=== PATIENT | male | born 1960 | race Caucasian/White ===

== ENCOUNTER 2018-04-16 10:19 | Emergency (ER) | payer OTHER ==
[2018-04-16] MEDS ORDERED: TETRACAINE HCL 0.5% 2ML OPTH ONE (11:02)
[2018-04-16] MEDS ORDERED: FLUORESCEIN SODIUM 0.6 MG/WRAP ONE (11:02)
[2018-04-16] MEDS ORDERED: TETANUS & DIPHTHERIA TOX,ADULT 0.5 ML VIAL ONE (11:03)
[2018-04-16] MEDS ORDERED: TOBRAMYCIN 0.3% 5ML OPTH DROPS OPTH ONE (11:15)
--- NOTE | 2018-04-16 11:20 | ER ---
Nurse's Notes [facility] Name: Jah Alberto Age: 58 yrs Sex: Male : 1960 Arrival Date: 04/16/2018 Time: 10:22 Bed 11 Private MD: JERRY EDWARDS Diagnosis: Conjunctivitis Presentation: 04/16 10:38 Presenting complaint: Patient states: " I have something in my eye, my saw it and ph tried to get it out but she couldn't." Pt reports pain and watering to L eye, denies vision loss. Transition of care: patient was not received from another setting of care. Onset of symptoms was April 16, 2018. Risk Assessment: Do you want to hurt yourself or someone else? Patient reports no desire to harm self or others. Initial Sepsis Screen: Does the patient meet any 2 criteria? No. Patient's initial sepsis screen is negative. Does the patient have a suspected source of infection? No. Patient's initial sepsis screen is negative. Care prior to arrival: None. 10:38 Method Of Arrival: Ambulatory ph 10:38 Acuity: АЛЕКСАНДР 4 ph Historical: - Allergies: 10:41 No Known Allergies; ph - PMHx: 10:41 Anxiety; Depression; ph - PSHx: 10:41 Hernia repair; ph - Immunization history:: Adult Immunizations unknown. - Social history:: Smoking status: Patient uses tobacco products, denies chronic smoking, but will smoke occasionally, cigars. - Ebola Screening: : No symptoms or risks identified at this time. Screenin:05 Abuse screen: Denies threats or abuse. Denies injuries from another. Nutritional iw screening: No deficits noted. Tuberculosis screening: No symptoms or risk factors identified. Fall Risk None identified. Assessment: 11:05 General: Appears in no apparent distress. Behavior is calm, cooperative. Pain: iw Complains of pain in left eye. Neuro: Level of Consciousness is awake, alert, obeys commands, Oriented to person, place, time, situation, Moves all extremities. Full function. Cardiovascular: Patient's skin is warm and dry. Respiratory: Respiratory effort is even, unlabored. Derm: Skin is pink, warm \\T\\ dry. normal. Musculoskeletal: Range of motion: intact in all extremities. Vital Signs: 10:39 BP 136 / 103; Pulse 79; Resp 18; Temp 97.8; Pulse Ox 96% on R/A; Weight 91.63 kg; ph Height 5 ft. 11 in. (180.34 cm); Pain 7/10; 10:39 Body Mass Index 28.17 (91.63 kg, 180.34 cm) ph ED Course: 10:22 Patient arrived in ED. mr 10:22 VA, VA is Private Physician. mr 10:39 Triage completed. ph 10:41 Arm band placed on. ph 10:46 [facility]. snw 10:46 Jose Steele MD is Attending Physician. snw 11:04 Karon Medley, RN is Primary Nurse. iw 11:05 Patient has correct armband on for positive identification. iw 11:05 Patient did not have IV access during this emergency room visit. iw 11:19 Cynthia Acevedo MD is Referral Physician. snw 12:06 No provider procedures requiring assistance completed. iw Administered Medications: 10:40 Drug: Tetracaine Drops 0.5 % 1 drops Route: Ophthalmic; Site: left eye; iw 11:04 Drug: Tetanus-Diphtheria Toxoid Adult 0.5 ml {Freight Router: [employer]. Exp: iw 07/08/2020. Lot #: [id number]. } Route: IM; Site: right deltoid; 12:00 Follow up: Response: No adverse reaction iw 12:05 Drug: ToBREx Drops (0.3 %) 2 drops Route: Ophthalmic; Site: left eye; iw Outcome: 11:19 Discharge ordered by MD. snw 12:06 Discharged to home ambulatory, with family. iw 12:06 Condition: good 12:06 Discharge instructions given to family, Instructed on discharge instructions, follow up and referral plans. Demonstrated understanding of instructions, follow-up care. 12:07 Patient left the ED. iw Signatures: Karen Kaiser FNP-C DAIRY MANAGEMENT SPECIALIST-Csnw Aundrea Mello mr Karon Medley, KJ RN iw Delphine Avila RN RN ph Corrections: (The following items were deleted from the chart) 10:42 10:39 BP 136 / 103; Pulse 79bpm; Resp 18bpm; Pulse Ox 96% RA; Temp 97.8F; 91.63 kg; ph Height 5 ft. 11 in.; BMI: 28.1; Pain 7/10; ph
--- NOTE | 2018-04-16 11:20 | EDPHYS ---
Physician Documentation [facility] Name: Jah Alberto Age: 58 yrs Sex: Male : 1960 Arrival Date: 04/16/2018 Time: 10:22 Bed 11 Private MD: JERRY, [place] ED Physician Jose Steele HPI: 04/16 11:34 This 58 yrs old Male presents to ER via Ambulatory with complaints of Foreign snw Body In Eye. 11:34 The patient is experiencing pain, tearing, The patient sustained None. to the left eye, snw caused by an unknown mechanism. Onset: The symptoms/episode began/occurred suddenly. Duration: the symptoms are continuous. Aggravated by rubbing, Alleviated by nothing. Associated signs and symptoms: Pertinent positives: None. Patient wears glasses. Severity of symptoms: At their worst the symptoms were moderate severe in the emergency department the symptoms have resolved and did so just prior to arrival. The patient has not experienced similar symptoms in the past. It is unknown whether or not the patient has recently seen a physician. Historical: - Allergies: 10:41 No Known Allergies; ph - PMHx: 10:41 Anxiety; Depression; ph - PSHx: 10:41 Hernia repair; ph - Immunization history:: Adult Immunizations unknown. - Social history:: Smoking status: Patient uses tobacco products, denies chronic smoking, but will smoke occasionally, cigars. - Ebola Screening: : No symptoms or risks identified at this time. ROS: 11:30 Constitutional: Negative for fever, chills, and weight loss, ENT: Negative for injury, snw pain, and discharge, Neck: Negative for injury, pain, and swelling, Cardiovascular: Negative for chest pain, palpitations, and edema, Respiratory: Negative for shortness of breath, cough, wheezing, and pleuritic chest pain, Abdomen/GI: Negative for abdominal pain, nausea, vomiting, diarrhea, and constipation, Back: Negative for injury and pain, : Negative for injury, bleeding, discharge, and swelling, MS/Extremity: Negative for injury and deformity, Skin: Negative for injury, rash, and discoloration, Neuro: Negative for headache, weakness, numbness, tingling, and seizure. 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 Exam: 11:20 Constitutional: This is a well developed, well nourished patient who is awake, alert, snw and in no acute distress. Head/Face: Normocephalic, atraumatic. ENT: Nares patent. No nasal discharge, no septal abnormalities noted. Tympanic membranes are normal and external auditory canals are clear. Oropharynx with no redness, swelling, or masses, exudates, or evidence of obstruction, uvula midline. Mucous membranes moist. Neck: Trachea midline, no thyromegaly or masses palpated, and no cervical lymphadenopathy. Supple, full range of motion without nuchal rigidity, or vertebral point tenderness. No Meningismus. Chest/axilla: Normal chest wall appearance and motion. Nontender with no deformity. No lesions are appreciated. Cardiovascular: Regular rate and rhythm with a normal S1 and S2. No gallops, murmurs, or rubs. Normal PMI, no JVD. No pulse deficits. Respiratory: Lungs have equal breath sounds bilaterally, clear to auscultation and percussion. No rales, rhonchi or wheezes noted. No increased work of breathing, no retractions or nasal flaring. Abdomen/GI: Soft, non-tender, with normal bowel sounds. No distension or tympany. No guarding or rebound. No evidence of tenderness throughout. Back: No spinal tenderness. No costovertebral tenderness. Full range of motion. Skin: Warm, dry with normal turgor. Normal color with no rashes, no lesions, and no evidence of cellulitis. MS/ Extremity: Pulses equal, no cyanosis. Neurovascular intact. Full, normal range of motion. Neuro: Awake and alert, GCS 15, oriented to person, place, time, and situation. Cranial nerves II-XII grossly intact. Motor strength 5/5 in all extremities. Sensory grossly intact. Cerebellar exam normal. Normal gait. 11:20 Eyes: Periorbital structures: appear normal, Pupils: no acute changes, Extraocular movements: no acute changes, Conjunctiva: injected, in the left eye, Corneas: are normal, Sclera: no appreciated abnormality, Lids and lashes: appear normal, bilaterally. Vital Signs: 10:39 BP 136 / 103; Pulse 79; Resp 18; Temp 97.8; Pulse Ox 96% on R/A; Weight 91.63 kg; ph Height 5 ft. 11 in. (180.34 cm); Pain 7/10; 10:39 Body Mass Index 28.17 (91.63 kg, 180.34 cm) ph Procedures: 11:31 Eye Exam: no noted corneal fb or abrasion. snw MDM: 10:46 Patient medically screened. snw 11:32 Data reviewed: vital signs, nurses notes. Data interpreted: Pulse oximetry: on room air snw is 96 %. Interpretation: acceptable. Counseling: I had a detailed discussion with the patient and/or guardian regarding: the historical points, exam findings, and any diagnostic results supporting the discharge/admit diagnosis, the presence of at least one elevated blood pressure reading (>120/80) during this emergency department visit, the need for outpatient follow up, to return to the emergency department if symptoms worsen or persist or if there are any questions or concerns that arise at home. Special discussion: I have referred the patient to see his PCP for further evaluation of high blood pressure. Based on the history and exam findings, there is no indication for further emergent testing or inpatient evaluation. I discussed with the patient/guardian the need to see the opthamologist for further evaluation of the symptoms, I discussed with the patient/guardian the need to see the primary care provider for further evaluation of the symptoms. 04/16 10:46 Order name: Visual Acuity; Complete Time: 12:06 snw 04/16 10:46 Order name: Eye Tray; Complete Time: 11:04 snw 04/16 10:46 Order name: Fluoresene Opth strip; Complete Time: 11:04 snw Administered Medications: 10:40 Drug: Tetracaine Drops 0.5 % 1 drops Route: Ophthalmic; Site: left eye; 11:04 Drug: Tetanus-Diphtheria Toxoid Adult 0.5 ml {Trousseau Consultant: [email or web address]. Exp: 07/08/2020. Lot #: [id number]. } Route: IM; Site: right deltoid; 12:00 Follow up: Response: No adverse reaction iw 12:05 Drug: ToBREx Drops (0.3 %) 2 drops Route: Ophthalmic; Site: left eye; Disposition: 18:40 Co-signature as Attending Physician, Jose Steele MD I agree with the assessment and kdr plan of care. Disposition: 04/16/18 11:19 Discharged to Home. Impression: Conjunctivitis. - Condition is Stable. - Discharge Instructions: Conjunctivitis (Viral and Bacterial), Hypertension. - Medication Reconciliation Form, Thank You Letter, Antibiotic Education, Prescription Opioid Use form. - Follow up: Emergency Department; When: As needed; Reason: Worsening of condition. Follow up: Cynthia Acevedo MD; When: 2 - 3 days; Reason: Recheck today's complaints, Continuance of care. - Notes: Please use drops as directed three times daily x 1 week Signatures: Jose Steele MD MD [facility] Karen Kaiser, MOLD MAKER HELPER-C MOLD MAKER HELPER-Csnw Karon Medley, RN RN iw Delphine Avila RN RN ph Corrections: (The following items were deleted from the chart) 12:07 11:19 04/16/2018 11:19 Discharged to Home. Impression: Conjunctivitis. Condition is iw Stable. Forms are Medication Reconciliation Form, Thank You Letter, Antibiotic Education, Prescription Opioid Use. Follow up: Emergency Department; When: As needed; Reason: Worsening of condition. Follow up: Cynthia Acevedo; When: 2 - 3 days; Reason: Recheck today's complaints, Continuance of care. snw
== END 2018-04-16 12:07 | disposition home or self-care (01) ==
LOC: ER 10:19
DX: H10.9 Unspecified conjunctivitis (principal); Z72.0 Tobacco use; Z23 Encounter for immunization
CPT/HCPCS: 90714; 99283

== ENCOUNTER 2018-11-11 11:34 | Emergency (ER) | payer OTHER ==
[2018-11-11 12:24] LABS: Absolute Lymphocytes (CBC) 1.4 K/uL (0.7-4.9); Absolute Monocytes 0.9 K/uL (0.1-1.3); Absolute Neutrophil 5.7 K/uL (1.8-8.0); Basophils % 0.9 % (0-1.3); Eosinophils % 1.1 % (0-4.4); Hematocrit 45.8 % (39.6-49.0); Lymphocytes % 17.2 % (15.3-44.8); MPV 8.2 fL (7.6-11.3); Monocytes % 11.2 % (3.3-12.3); RBC Red Blood Cell Count 4.77 M/uL (4.33-5.43)
[2018-11-11] MEDS ORDERED: NA CHLORIDE 0.9% 1,000 ML ONE (12:33)
[2018-11-11 12:39] LABS: Potassium 4.5 mmol/L (3.5-5.1)
--- NOTE | 2018-11-11 14:13 | ER ---
Nurse's Notes [facility] Name: Jah Alberto Age: 58 yrs Sex: Male : 1960 Arrival Date: 11/11/2018 Time: 11:38 Bed 18 Private MD: JERRY EDWARDS Diagnosis: Acute upper respiratory infection, unspecified Presentation: 11/11 11:39 Presenting complaint: Patient states: congestion since 11/08/18, I cant eat, I am ch vomiting, I feel the snot dripping down the back of my throat, cough, and I think I am dehydrated. I have had sweat, chills, and body aches. Transition of care: patient was not received from another setting of care. Onset of symptoms was November 08, 2018. Risk Assessment: Do you want to hurt yourself or someone else? Patient reports no desire to harm self or others. Initial Sepsis Screen: Does the patient meet any 2 criteria? No. Patient's initial sepsis screen is negative. Does the patient have a suspected source of infection? No. Patient's initial sepsis screen is negative. Care prior to arrival: None. 11:39 Method Of Arrival: Ambulatory 11:39 Acuity: АЛЕКСАНДР 3 Triage Assessment: 11:44 General: Appears in no apparent distress. comfortable, well groomed, Behavior is cooperative, appropriate for age, anxious, restless. Pain: Complains of pain in head and abdomen Pain currently is 6 out of 10 on a pain scale. Pain began gradually, years ago. EENT: Reports nasal congestion nasal discharge. Neuro: No deficits noted. Respiratory: Airway is patent Respiratory effort is even, unlabored. Historical: - Allergies: 11:44 "nerves medication, name unknown"; - Home Meds: 11:44 unknown [Active]; - PMHx: 11:44 Anxiety; Depression; PTSD, disabled Vet, hernia pain requires to walk with a cane.; - PSHx: 11:44 Hernia repair; - Immunization history:: Adult Immunizations up to date, Flu vaccine is not up to date. - Social history:: Smoking status: Patient/guardian denies using tobacco. - Ebola Screening: : Patient negative for fever greater than or equal to 101.5 degrees Fahrenheit, and additional compatible Ebola Virus Disease symptoms Patient denies exposure to infectious person Patient denies travel to an Ebola-affected area in the 21 days before illness onset No symptoms or risks identified at this time. Screenin:20 Abuse screen: Denies threats or abuse. Denies injuries from another. Nutritional aj screening: No deficits noted. Tuberculosis screening: No symptoms or risk factors identified. Fall Risk None identified. Assessment: 12:20 General: Appears in no apparent distress. comfortable, Behavior is calm, cooperative, aj appropriate for age. Neuro: Level of Consciousness is awake, alert, obeys commands, Oriented to person, place, time, situation, Appropriate for age. Cardiovascular: Capillary refill < 3 seconds in bilateral fingers. Respiratory: Reports cough that is Airway is patent Respiratory effort is even, unlabored, Respiratory pattern is regular, symmetrical, Breath sounds are clear bilaterally. EENT: Reports nasal congestion nasal discharge. Derm: Skin is intact, is healthy with good turgor, Skin is pink, warm \\T\\ dry. normal. 14:20 Reassessment: Patient appears in no apparent distress at this time. No changes from previously documented assessment. Patient and/or family updated on plan of care and expected duration. Pain level reassessed. Patient is alert, oriented x 3, equal unlabored respirations, skin warm/dry/pink. Patient states feeling better. Vital Signs: 11:39 BP 140 / 109; Pulse 85; Resp 12; Temp 98.5; Pulse Ox 98% on R/A; Weight 92.99 kg; ch Height 5 ft. 10 in. (177.80 cm); Pain 6/10; 12:28 BP 123 / 86; Pulse 86; Resp 22; Pulse Ox 97% ; hs1 13:15 BP 121 / 84; Pulse 85; Resp 22; Pulse Ox 98% ; hs1 14:20 BP 135 / 92; Pulse 84; Resp 18; Pulse Ox 98% on R/A; aj 11:39 Body Mass Index 29.41 (92.99 kg, 177.80 cm) ED Course: 11:38 Patient arrived in ED. sb2 11:38 VA, VA is Private Physician. sb2 11:40 Triage completed. 11:43 Park Gonzalez FNP-C is [facility]. kb 11:43 Jose Steele MD is Attending Physician. kb 11:44 Arm band placed on left wrist. Patient placed in an exam room, on a stretcher. 12:11 Lilo Kamara, RN is Primary Nurse. 12:19 Initial lab(s) drawn, by dc, sent to lab. Inserted saline lock: 20 gauge antecubital 5 area, using aseptic technique. Blood collected. 12:19 Strep Sent. 5 12:19 Flu Sent. 5 12:19 [place] Screen Profile Sent. [facility] 12:19 Basic Metabolic Panel Sent. [facility] 12:20 CBC with Diff Sent. [facility] 14:20 Patient has correct armband on for positive identification. aj 14:20 No provider procedures requiring assistance completed. IV discontinued, intact, aj bleeding controlled, No redness/swelling at site. Pressure dressing applied. Administered Medications: 12:30 Drug: NS 0.9% 1000 ml Route: IV; Rate: 1000 ml; Site: right forearm; aj 14:22 Follow up: Response: No adverse reaction; IV Status: Completed infusion; IV Intake: aj 1000ml Intake: 14:22 IV: 1000ml; Total: 1000ml. aj Outcome: 14:13 Discharge ordered by . 14:20 Discharged to home ambulatory, with significant other. aj 14:20 Condition: good 14:20 Discharge instructions given to patient, family, Instructed on discharge instructions, follow up and referral plans. Demonstrated understanding of instructions, follow-up care, medications. 14:26 Patient left the ED. Signatures: Park Gonzalez, MANAGER COSMETIC-C MANAGER COSMETIC-Rubia Mendoza, RN Lilo Ozuna ch, RN Aundrea Gipson 5 [place] sb2 Atilio Fernando hs1
--- NOTE | 2018-11-11 14:13 | EDPHYS ---
Physician Documentation [facility] Name: Jah Alberto Age: 58 yrs Sex: Male : 1960 Arrival Date: 11/11/2018 Time: 11:38 Bed 18 Private MD: [place], [place] ED Physician Jose Steele HPI: 11/11 13:24 This 58 yrs old Male presents to ER via Ambulatory with complaints of kb Congestion. 13:24 The patient or guardian reports cough, that is intermittent, described as moderate, kb with no sputum, flu symptoms, arthralgias, low-grade fever, myalgias. Onset: The symptoms/episode began/occurred yesterday. Severity of symptoms: At their worst the symptoms were moderate, in the emergency department the symptoms are unchanged. Modifying factors: The symptoms are alleviated by nothing, the symptoms are aggravated by nothing. Associated signs and symptoms: Pertinent positives: fever, nausea, vomiting, Pertinent negatives: chest pain, diarrhea, ear ache, rhinorrhea, sore throat. The patient has not experienced similar symptoms in the past. The patient has not recently seen a physician. Historical: - Allergies: 11:44 "nerves medication, name unknown"; ch - Home Meds: 11:44 unknown [Active]; ch - PMHx: 11:44 Anxiety; Depression; PTSD, disabled Vet, hernia pain requires to walk with a cane.; ch - PSHx: 11:44 Hernia repair; ch - Immunization history:: Adult Immunizations up to date, Flu vaccine is not up to date. - Social history:: Smoking status: Patient/guardian denies using tobacco. - Ebola Screening: : Patient negative for fever greater than or equal to 101.5 degrees Fahrenheit, and additional compatible Ebola Virus Disease symptoms Patient denies exposure to infectious person Patient denies travel to an Ebola-affected area in the 21 days before illness onset No symptoms or risks identified at this time. ROS: 13:20 Eyes: Negative for injury, pain, redness, and discharge, Neck: Negative for injury, kb pain, and swelling, Cardiovascular: Negative for chest pain, palpitations, and edema, Back: Negative for injury and pain, : Negative for injury, bleeding, discharge, and swelling, MS/Extremity: Negative for injury and deformity, Skin: Negative for injury, rash, and discoloration. 13:20 Constitutional: Positive for body aches, chills, fatigue, fever, malaise, Negative for poor PO intake, weight loss. 13:20 ENT: 13:20 ENT: Positive for sinus congestion. 13:20 Respiratory: Positive for cough, Negative for dyspnea on exertion, hemoptysis, orthopnea, pleurisy, shortness of breath, sputum production, wheezing. 13:20 Neuro: Positive for headache. 13:22 Abdomen/GI: Positive for nausea and vomiting. kb Exam: 13:24 Constitutional: This is a well developed, well nourished patient who is awake, alert, kb and in no acute distress. Head/Face: Normocephalic, atraumatic. Eyes: Pupils equal round and reactive to light, extra-ocular motions intact. Lids and lashes normal. Conjunctiva and sclera are non-icteric and not injected. Cornea within normal limits. Periorbital areas with no swelling, redness, or edema. ENT: Nares patent. No nasal discharge, no septal abnormalities noted. Tympanic membranes are normal and external auditory canals are clear. Oropharynx with no redness, swelling, or masses, exudates, or evidence of obstruction, uvula midline. Mucous membranes moist. Neck: Trachea midline, no thyromegaly or masses palpated, and no cervical lymphadenopathy. Supple, full range of motion without nuchal rigidity, or vertebral point tenderness. No Meningismus. Chest/axilla: Normal chest wall appearance and motion. Nontender with no deformity. No lesions are appreciated. Cardiovascular: Regular rate and rhythm with a normal S1 and S2. No gallops, murmurs, or rubs. Normal PMI, no JVD. No pulse deficits. Respiratory: Lungs have equal breath sounds bilaterally, clear to auscultation and percussion. No rales, rhonchi or wheezes noted. No increased work of breathing, no retractions or nasal flaring. Back: No spinal tenderness. No costovertebral tenderness. Full range of motion. Skin: Warm, dry with normal turgor. Normal color with no rashes, no lesions, and no evidence of cellulitis. MS/ Extremity: Pulses equal, no cyanosis. Neurovascular intact. Full, normal range of motion. Neuro: Awake and alert, GCS 15, oriented to person, place, time, and situation. Cranial nerves II-XII grossly intact. Motor strength 5/5 in all extremities. Sensory grossly intact. Cerebellar exam normal. Normal gait. 13:24 Abdomen/GI: Inspection: abdomen appears normal, Bowel sounds: normal, in all quadrants, Palpation: soft, in all quadrants, mild abdominal tenderness, in the right upper quadrant and left upper quadrant, pt states "its sore from vomiting". Vital Signs: 11:39 BP 140 / 109; Pulse 85; Resp 12; Temp 98.5; Pulse Ox 98% on R/A; Weight 92.99 kg; ch Height 5 ft. 10 in. (177.80 cm); Pain 6/10; 12:28 BP 123 / 86; Pulse 86; Resp 22; Pulse Ox 97% ; hs1 13:15 BP 121 / 84; Pulse 85; Resp 22; Pulse Ox 98% ; hs1 14:20 BP 135 / 92; Pulse 84; Resp 18; Pulse Ox 98% on R/A; aj 11:39 Body Mass Index 29.41 (92.99 kg, 177.80 cm) ch MDM: 11:44 Patient medically screened. kb 13:23 Data reviewed: vital signs, nurses notes. Data interpreted: Pulse oximetry: on room air kb is 97 %. Interpretation: normal. 14:12 Counseling: I had a detailed discussion with the patient and/or guardian regarding: the kb historical points, exam findings, and any diagnostic results supporting the discharge/admit diagnosis, lab results, the need for outpatient follow up, a family practitioner, to return to the emergency department if symptoms worsen or persist or if there are any questions or concerns that arise at home. 11/11 11:53 Order name: CBC with Diff; Complete Time: 12:29 kb 11/11 11:53 Order name: Basic Metabolic Panel; Complete Time: 12:46 kb 11/11 11:53 Order name: [place] Screen Profile; Complete Time: 13:40 kb 11/11 11:53 Order name: Flu; Complete Time: 14:05 kb 11/11 11:53 Order name: Strep; Complete Time: 12:31 kb 11/11 12:33 Order name: Throat Culture EDMS 11/11 11:53 Order name: IV Start; Complete Time: 12:20 kb Administered Medications: 12:30 Drug: NS 0.9% 1000 ml Route: IV; Rate: 1000 ml; Site: right forearm; aj 14:22 Follow up: Response: No adverse reaction; IV Status: Completed infusion; IV Intake: aj 1000ml Disposition: 11/12 07:20 Co-signature as Attending Physician, Jose Steele MD I agree with the assessment and kdr plan of care. Disposition: 11/11/18 14:13 Discharged to Home. Impression: Acute upper respiratory infection, unspecified. - Condition is Stable. - Discharge Instructions: Upper Respiratory Infection, Adult, [id number]. - Medication Reconciliation Form, Thank You Letter, Antibiotic Education, Prescription Opioid Use form. - Follow up: Emergency Department; When: As needed; Reason: Worsening of condition. Follow up: Private Physician; When: 2 - 3 days; Reason: Recheck today's complaints, Continuance of care, Re-evaluation by your physician. Signatures: Dispatcher [employer] EDPark Frazier, BRAULIO-C MANAGED CARE ANALYST-Rubia Mendoza, RN Lilo Ozuna ch, RN RN aj Rittger, Kevin, MD MD [facility] Corrections: (The following items were deleted from the chart) 11/11 14:26 14:13 11/11/2018 14:13 Discharged to Home. Impression: Acute upper respiratory aj infection, unspecified. Condition is Stable. Forms are Medication Reconciliation Form, Thank You Letter, Antibiotic Education, Prescription Opioid Use. Follow up: Emergency Department; When: As needed; Reason: Worsening of condition. Follow up: Private Physician; When: 2 - 3 days; Reason: Recheck today's complaints, Continuance of care, Re-evaluation by your physician. kb
== END 2018-11-11 14:26 | disposition home or self-care (01) ==
LOC: ER 11:34
DX: J06.9 Acute upper respiratory infection, unspecified (principal); F41.9 Anxiety disorder, unspecified; F32.9 Major depressive disorder, single episode, unspecified; F43.10 Post-traumatic stress disorder, unspecified
CPT/HCPCS: 36415; 80048; 85025; 86308; 87070; 87081; 87804; 96360; 96361; 99284; J7030

== ENCOUNTER 2019-02-22 10:56 | Emergency (ER) | payer OTHER ==
--- NOTE | 2019-02-22 12:45 | RAD REPORT ---
EXAM DESCRIPTION: CT - Stone Protocol - 02/22/2019 12:36 pm CLINICAL HISTORY: Flank pain. right groin pain COMPARISON: No comparisons TECHNIQUE: Axial images were obtained without oral or IV contrast. Lack of contrast limits solid org an and vascular assessment. The [id number] spans the entirety of the system partially obscuring uppermost abdomen and lung bases. Coronal reformatted images were obtained and reviewed. All CT scans are performed using dose optimization technique as appropriate and may include automated exposure control or mA/KV adjustment according to patient size. FINDINGS: The lower lung downey are clear. Small hiatal hernia. Imaged portions of the liver and spleen show no suspicious findings on non-contrast imaging. The panc reas and adrenal glands are normal. No pathologic lymphadenopathy in the abdomen or pelvis. No urinary tract stones or obstructive uropathy. No bowel obstruction, free air, free fluid or abscess. Normal appendix noted. No significant bony abnormality. Small bilateral fat containing inguinal hernias. IMPRESSION: No urinary tract stones or obstructive uropathy. Small bilateral fat containing inguinal hernias.
[2019-02-22] MEDS ORDERED: HYDROCODONE/APAP 7.5/325 MG TAB ONE (13:05)
--- NOTE | 2019-02-22 13:16 | ER ---
Nurse's Notes [facility] Name: Jah Alberto Age: 59 yrs Sex: Male : 1960 Arrival Date: 02/22/2019 Time: 11:00 Bed 11 Private MD: Diagnosis: Strain of muscle, fascia and tendon of pelvis-right groin Presentation: 02/22 11:07 Presenting complaint: Patient states: yesterday, i was working on my house, and i hj started hurting on my R groin area, hx of bilateral hernia repair; states: i usually take cortisone shot every 3 months for this;. Transition of care: patient was not received from another setting of care. Onset of symptoms was February 22, 2019. Risk Assessment: Do you want to hurt yourself or someone else? Patient reports no desire to harm self or others. Initial Sepsis Screen: Does the patient meet any 2 criteria? No. Patient's initial sepsis screen is negative. Does the patient have a suspected source of infection? No. Patient's initial sepsis screen is negative. Care prior to arrival: None. 11:07 Method Of Arrival: Ambulatory 11:07 Acuity: [id number] 4 hj Triage Assessment: 13:40 General: Appears in no apparent distress. Behavior is calm. iw Historical: - Allergies: 11:10 "nerves medication, name unknown"; hj - PMHx: 11:10 Anxiety; Depression; PTSD, disabled Vet, hernia pain requires to walk with a cane.; hj - PSHx: 11:10 Hernia repair; hj - Immunization history:: Adult Immunizations up to date. - Ebola Screening: : Patient negative for fever greater than or equal to 101.5 degrees Fahrenheit, and additional compatible Ebola Virus Disease symptoms Patient denies exposure to infectious person Patient denies travel to an Ebola-affected area in the 21 days before illness onset No symptoms or risks identified at this time. - Social history:: Smoking status: Patient uses tobacco products, unknown amount. Screenin:40 Abuse screen: Denies threats or abuse. Denies injuries from another. Nutritional iw screening: No deficits noted. Tuberculosis screening: No symptoms or risk factors identified. Fall Risk None identified. Assessment: 13:00 General: Appears in no apparent distress. comfortable, Behavior is calm, cooperative. iw Pain: Complains of pain in pelvis. Neuro: Level of Consciousness is awake, alert, obeys commands, Moves all extremities. Cardiovascular: Patient's skin is warm and dry. Respiratory: Respiratory effort is even, unlabored. GI: No signs and/or symptoms were reported involving the gastrointestinal system. Derm: Skin is intact, is healthy with good turgor. Musculoskeletal: Range of motion: intact in all extremities. Vital Signs: 11:10 BP 146 / 101; Pulse 88; Resp 18; Temp 98.7(O); Pulse Ox 99% on R/A; Weight 86.18 kg; hj Height 5 ft. 10 in. (177.80 cm); Pain 10/10; 11:10 Body Mass Index 27.26 (86.18 kg, 177.80 cm) hj ED Course: 11:00 Patient arrived in ED. as 11:09 Triage completed. hj 11:11 Arm band placed on right wrist. hj 11:33 Park Gonzalez F[facility]-C [facility]. kb 11:33 Americo Merino MD is Attending Physician. kb 12:[address] via stretcher. j6 12:34 CT completed. Patient tolerated procedure well. Patient moved to CT via wheelchair. Patient moved back from CT. 12:36 CT Stone Protocol In Process Unspecified. EDMS 12:48 Karon Medley, RN is Primary Nurse. iw 13:00 Patient has correct armband on for positive identification. iw 13:42 No provider procedures requiring assistance completed. Patient did not have IV access sv during this emergency room visit. Administered Medications: 13:00 Drug: [place] (7.5 mg-325 mg) 1 tabs Route: PO; sg Outcome: 13:15 Discharge ordered by . kb 13:41 Discharged to home ambulatory, with his cane sv 13:41 Condition: stable 13:41 Discharge instructions given to patient, Instructed on discharge instructions, follow up and referral plans. medication usage, Demonstrated understanding of instructions, follow-up care, medications, Prescriptions given X 2. 13:42 Patient left the ED. sv Signatures: Dispatcher [employer] EDMS Park Gonzalez FNP-C FNP-Ckb Verde, Stephanie, RN RN J Carlos Kidd RN RN sg Jones, Susan sj Martinez, Amelia as Karon Medley RN RN Chapincito Witt RN RN hj Garcia, Jessica jg6 Corrections: (The following items were deleted from the chart) 11:11 11:10 Pulse 88bpm; Resp 18bpm; Pulse Ox 99% RA; Temp 98.7F Oral; 86.18 kg; Height 5 ft. hj 10 in.; BMI: 27.2; Pain 08/18; hj
--- NOTE | 2019-02-22 13:16 | EDPHYS ---
Physician Documentation [facility] Name: Jah Alberto Age: 59 yrs Sex: Male : 1960 Arrival Date: 02/22/2019 Time: 11:00 Bed 11 Private MD: ED Physician Americo Merino HPI: 02/22 13:00 This 59 yrs old Male presents to ER via Ambulatory with complaints of Hip kb Pain, Foot Pain. 13:00 The patient presents with right groin pain. Onset: The symptoms/episode began/occurred kb yesterday. The symptoms do not radiate. Associated signs and symptoms: none. The symptoms are described as constant, sharp. Modifying factors: the symptoms are aggravated by movement, pressure. Severity of pain: At its worst the pain was moderate severe in the emergency department the pain is unchanged. The patient has not experienced similar symptoms in the past. The patient has not recently seen a physician. Pt reports he has chronic right groin pain that started after a hernia repair. States he normally has pain of 6-7/10. Yesterday a board fell and he caught it but it made him twist. Has been having right groin pain since then. States its the spot that always hurts, but now is a 9/10. States "I just want to make sure I didn't mess up anything in there because they stapled the mesh in place when I had the hernia surgery.". Historical: - Allergies: 11:10 "nerves medication, name unknown"; hj - PMHx: 11:10 Anxiety; Depression; PTSD, disabled Vet, hernia pain requires to walk with a cane.; hj - PSHx: 11:10 Hernia repair; hj - Immunization history:: Adult Immunizations up to date. - Ebola Screening: : Patient negative for fever greater than or equal to 101.5 degrees Fahrenheit, and additional compatible Ebola Virus Disease symptoms Patient denies exposure to infectious person Patient denies travel to an Ebola-affected area in the 21 days before illness onset No symptoms or risks identified at this time. - Social history:: Smoking status: Patient uses tobacco products, unknown amount. ROS: 12:58 Constitutional: Negative for fever, chills, and weight loss, Neck: Negative for injury, kb pain, and swelling, Cardiovascular: Negative for chest pain, palpitations, and edema, Respiratory: Negative for shortness of breath, cough, wheezing, and pleuritic chest pain, : Negative for injury, bleeding, discharge, and swelling, MS/Extremity: Negative for injury and deformity, Skin: Negative for injury, rash, and discoloration, Neuro: Negative for headache, weakness, numbness, tingling, and seizure. 12:58 Abdomen/GI: Positive for abdominal pain, Negative for nausea, vomiting, and diarrhea. Exam: 12:58 Constitutional: This is a well developed, well nourished patient who is awake, alert, kb and in no acute distress. Head/Face: Normocephalic, atraumatic. Chest/axilla: Normal chest wall appearance and motion. Nontender with no deformity. No lesions are appreciated. Cardiovascular: Regular rate and rhythm with a normal S1 and S2. No gallops, murmurs, or rubs. Normal PMI, no JVD. No pulse deficits. Respiratory: Lungs have equal breath sounds bilaterally, clear to auscultation and percussion. No rales, rhonchi or wheezes noted. No increased work of breathing, no retractions or nasal flaring. Abdomen/GI: Soft, non-tender, with normal bowel sounds. No distension or tympany. No guarding or rebound. No evidence of tenderness throughout. Back: No spinal tenderness. No costovertebral tenderness. Full range of motion. Skin: Warm, dry with normal turgor. Normal color with no rashes, no lesions, and no evidence of cellulitis. MS/ Extremity: Pulses equal, no cyanosis. Neurovascular intact. Full, normal range of motion. Neuro: Awake and alert, GCS 15, oriented to person, place, time, and situation. Cranial nerves II-XII grossly intact. Motor strength 5/5 in all extremities. Sensory grossly intact. Cerebellar exam normal. Normal gait. 12:58 Abdomen/GI: tenderness to right groin. Vital Signs: 11:10 BP 146 / 101; Pulse 88; Resp 18; Temp 98.7(O); Pulse Ox 99% on R/A; Weight 86.18 kg; hj Height 5 ft. 10 in. (177.80 cm); Pain 10/10; 11:10 Body Mass Index 27.26 (86.18 kg, 177.80 cm) MDM: 12:17 Patient medically screened. kb 12:58 Data reviewed: vital signs, nurses notes. Data interpreted: Pulse oximetry: on room air kb is 99 %. Interpretation: normal. Counseling: I had a detailed discussion with the patient and/or guardian regarding: the historical points, exam findings, and any diagnostic results supporting the discharge/admit diagnosis, radiology results, the need for outpatient follow up, a family practitioner, to return to the emergency department if symptoms worsen or persist or if there are any questions or concerns that arise at home. 02/22 12:25 Order name: CT Stone Protocol; Complete Time: 12:51 kb Administered Medications: 13:00 Drug: [place] (7.5 mg-325 mg) 1 tabs Route: PO; sg Disposition: 15:52 Co-signature as Attending Physician, Americo Merino MD I agree with the assessment and anirudh plan of care. Disposition: 02/22/19 13:15 Discharged to Home. Impression: Strain of muscle, fascia and tendon of pelvis - right groin. - Condition is Stable. - Discharge Instructions: Muscle Strain, [id number]. - Prescriptions for Cyclobenzaprine 10 mg Oral Tablet - take 1 tablet by ORAL route every 8 hours As needed; 21 tablet. Diclofenac Sodium 75 mg Oral Tablet, Delayed Release (E.C.) - take 1 tablet by ORAL route 2 times per day As needed; 30 tablet. - Medication Reconciliation Form, Thank You Letter, Antibiotic Education, Prescription Opioid Use form. - Follow up: Emergency Department; When: As needed; Reason: Worsening of condition. Follow up: Private Physician; When: 2 - 3 days; Reason: Recheck today's complaints, Continuance of care, Re-evaluation by your physician. Signatures: Dispatcher [employer] Park Alves, TITLE ONE READING TEACHER-C TITLE ONE READING TEACHER-CkVivi Moore RN RN sv Gay, Steven, RN RN sg Anderson, Corey, MD MD cha Williams, Irene RN Chapincito Powers RN RN Corrections: (The following items were deleted from the chart) 13:42 13:15 02/22/2019 13:15 Discharged to Home. Impression: Strain of muscle, fascia and sv tendon of pelvis - right groin. Condition is Stable. Discharge Instructions: Muscle Strain, [id number]. Forms are Medication Reconciliation Form, Thank You Letter, Antibiotic Education, Prescription Opioid Use. Follow up: Emergency Department; When: As needed; Reason: Worsening of condition. Follow up: Private Physician; When: 2 - 3 days; Reason: Recheck today's complaints, Continuance of care, Re-evaluation by your physician. kb
== END 2019-02-22 13:42 | disposition home or self-care (01) ==
LOC: ER 10:56
DX: S39.011A Strain of muscle, fascia and tendon of abdomen, initial encounter (principal); X50.1XXA Overexertion from prolonged static or awkward postures, initial encounter; Y93.89 Activity, other specified; Y92.9 Unspecified place or not applicable
CPT/HCPCS: 74176; 76377; 99284

== ENCOUNTER 2019-10-12 12:42 | Emergency (ER) | payer OTHER ==
--- NOTE | 2019-10-12 13:46 | RAD REPORT ---
EXAM DESCRIPTION: RAD - Wrist Right 3 View - 10/12/2019 1:36 pm CLINICAL HISTORY: Right wrist pain FINDINGS: No acute fracture or dislocation seen. Bony density which lies along the lateral aspect of the wrist has a sclerotic border and likely is ch ronic. 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 If patient continues have symptoms to suggest an occult fracture then follow up x-ray in 7 days would be recommended
--- NOTE | 2019-10-12 13:58 | ER ---
Nurse's Notes [facility] Name: Jah Alberto Age: 59 yrs Sex: Male : 1960 Arrival Date: 10/12/2019 Time: 12:44 Bed 26 Private MD: Diagnosis: Pain in right wrist Presentation: 10/12 12:47 Presenting complaint: Right wrist pain x 2-3 days. Denies injury. Transition of care: hb patient was not received from another setting of care. Onset of symptoms was October 10, 2019. Risk Assessment: Do you want to hurt yourself or someone else? Patient reports no desire to harm self or others. Care prior to arrival: Medication(s) given: topical diclofenac. 12:47 Method Of Arrival: Ambulatory 12:47 Acuity: АЛЕКСАНДР 4 14:31 Initial Sepsis Screen: Does the patient meet any 2 criteria? No. Patient's initial tr5 sepsis screen is negative. Does the patient have a suspected source of infection? No. Patient's initial sepsis screen is negative. Historical: - Allergies: 12:50 "nerves medication, name unknown"; hb - Home Meds: 12:51 unknown HTN med [Active]; unknown antidepressant [Active]; unknown anxiety med [Active];hb - PMHx: 12:50 Anxiety; Depression; PTSD, disabled Vet, hernia pain requires to walk with a cane.; hb - PSHx: 12:50 Hernia repair; hb - Immunization history:: Adult Immunizations up to date. - Social history:: Smoking status: Patient/guardian denies using tobacco. - Ebola Screening: : No symptoms or risks identified at this time. Screenin:10 Abuse screen: Denies threats or abuse. Denies injuries from another. Nutritional aj1 screening: No deficits noted. Tuberculosis screening: No symptoms or risk factors identified. 14:31 Fall Risk None identified. tr5 Assessment: 13:10 General: Appears in no apparent distress. comfortable, Behavior is calm, cooperative, aj1 appropriate for age. Pain: Complains of pain in right wrist. Neuro: Level of Consciousness is awake, alert, obeys commands, Oriented to person, place, time, situation. Cardiovascular: Patient's skin is warm and dry. Respiratory: Airway is patent Respiratory effort is even, unlabored, Respiratory pattern is regular, symmetrical. GI: No signs and/or symptoms were reported involving the gastrointestinal system. : No signs and/or symptoms were reported regarding the genitourinary system. EENT: No signs and/or symptoms were reported regarding the EENT system. Derm: No signs and/or symptoms reported regarding the dermatologic system. Skin is pink, warm \\T\\ dry. normal. Musculoskeletal: Range of motion: limited in right wrist. 14:10 Reassessment: Patient appears in no apparent distress at this time. No changes from aj1 previously documented assessment. Patient and/or family updated on plan of care and expected duration. Pain level reassessed. Patient is alert, oriented x 3, equal unlabored respirations, skin warm/dry/pink. Vital Signs: 12:48 BP 143 / 93; Pulse 68; Resp 16; Temp 97.8; Pulse Ox 100% on R/A; Weight 93.44 kg; hb Height 5 ft. 10 in. (177.80 cm); Pain 9/10; 12:48 Body Mass Index 29.56 (93.44 kg, 177.80 cm) hb ED Course: 12:44 Patient arrived in ED. mr 12:46 Arnoldo Eckert PA is PHCP. jr8 12:46 Dwight Pelaez MD is Attending Physician. jr8 12:48 Triage completed. hb 12:48 Arm band placed on. hb 13:10 Patient has correct armband on for positive identification. aj1 13:10 No provider procedures requiring assistance completed. aj1 13:11 Kita Chung RN is Primary Nurse. aj1 13:36 XRAY Wrist RIGHT 3 view In Process Unspecified. EDMS 13:57 J Carlos Dillard MD is Referral Physician. jr8 14:31 Patient did not have IV access during this emergency room visit. tr5 Administered Medications: No medications were administered Outcome: 13:57 Discharge ordered by . jr8 14:31 Discharged to home ambulatory. tr5 14:31 Condition: good 14:31 Discharge instructions given to patient, Instructed on discharge instructions, follow up and referral plans. medication usage, Demonstrated understanding of instructions, follow-up care, medications, Prescriptions given X 1. 14:32 Patient left the ED. tr5 Signatures: Dispatcher [employer] EDSC Kita Chung RN RN Lulu Clifton mr Arnoldo Eckert PA PA jr8 Michelle Barker RN RN hb Mo Roa RN RN tr5 Corrections: (The following items were deleted from the chart) 12:51 12:50 Home Meds: None; hb hb
--- NOTE | 2019-10-12 13:58 | EDPHYS ---
Physician Documentation [facility] Name: Jah Alberto Age: 59 yrs Sex: Male : 1960 Arrival Date: 10/12/2019 Time: 12:44 Bed 26 Private MD: ED Physician Dwight Pelaez HPI: 10/12 14:00 This 59 yrs old Male presents to ER via Ambulatory with complaints of Wrist jr8 Injury. 14:00 The patient or guardian reports decreased range of motion, pain. The complaints affect jr8 the right wrist diffusely. Context: The problem was sustained at home. Onset: The symptoms/episode began/occurred acutely, 3 day(s) ago. Modifying factors: The symptoms are alleviated by nothing, the symptoms are aggravated by movement. Associated signs and symptoms: The patient has no apparent associated signs or symptoms. The patient has not experienced similar symptoms in the past. The patient has not recently seen a physician. Patient stated that he had been working a lot around the house. 3 days ago had sudden onset sharp wrist pain that is not going away with topical NSAID use and immobilization . Historical: - Allergies: 12:50 "nerves medication, name unknown"; hb - Home Meds: 12:51 unknown HTN med [Active]; unknown antidepressant [Active]; unknown anxiety med [Active];hb - PMHx: 12:50 Anxiety; Depression; PTSD, disabled Vet, hernia pain requires to walk with a cane.; hb - PSHx: 12:50 Hernia repair; hb - Immunization history:: Adult Immunizations up to date. - Social history:: Smoking status: Patient/guardian denies using tobacco. - Ebola Screening: : No symptoms or risks identified at this time. ROS: 14:00 Eyes: Negative for injury, pain, redness, and discharge, ENT: Negative for injury, jr8 pain, and discharge, Neck: Negative for injury, pain, and swelling, Cardiovascular: Negative for chest pain, palpitations, and edema, Respiratory: Negative for shortness of breath, cough, wheezing, and pleuritic chest pain, Abdomen/GI: Negative for abdominal pain, nausea, vomiting, diarrhea, and constipation, Back: Negative for injury and pain, Skin: Negative for injury, rash, and discoloration, Neuro: Negative for headache, weakness, numbness, tingling, and seizure. 14:00 MS/extremity: Positive for pain, tenderness, of the right wrist. Exam: 14:00 Eyes: Pupils equal round and reactive to light, extra-ocular motions intact. Lids and jr8 lashes normal. Conjunctiva and sclera are non-icteric and not injected. Cornea within normal limits. Periorbital areas with no swelling, redness, or edema. ENT: Nares patent. No nasal discharge, no septal abnormalities noted. Tympanic membranes are normal and external auditory canals are clear. Oropharynx with no redness, swelling, or masses, exudates, or evidence of obstruction, uvula midline. Mucous membranes moist. Neck: Trachea midline, no thyromegaly or masses palpated, and no cervical lymphadenopathy. Supple, full range of motion without nuchal rigidity, or vertebral point tenderness. No Meningismus. Cardiovascular: Regular rate and rhythm with a normal S1 and S2. No gallops, murmurs, or rubs. Normal PMI, no JVD. No pulse deficits. Respiratory: Lungs have equal breath sounds bilaterally, clear to auscultation and percussion. No rales, rhonchi or wheezes noted. No increased work of breathing, no retractions or nasal flaring. Abdomen/GI: Soft, non-tender, with normal bowel sounds. No distension or tympany. No guarding or rebound. No evidence of tenderness throughout. Back: No spinal tenderness. No costovertebral tenderness. Full range of motion. Skin: Warm, dry with normal turgor. Normal color with no rashes, no lesions, and no evidence of cellulitis. Neuro: Awake and alert, GCS 15, oriented to person, place, time, and situation. Cranial nerves II-XII grossly intact. Motor strength 5/5 in all extremities. Sensory grossly intact. Cerebellar exam normal. Normal gait. 14:00 Musculoskeletal/extremity: Extremities: grossly normal except: noted in the right wrist: pain, tenderness, dorsal wrist at the radial ulnar joint and radiocarpal joints , ROM: intact in all extremities, Circulation is intact in all extremities. Sensation intact. Vital Signs: 12:48 BP 143 / 93; Pulse 68; Resp 16; Temp 97.8; Pulse Ox 100% on R/A; Weight 93.44 kg; hb Height 5 ft. 10 in. (177.80 cm); Pain 9/10; 12:48 Body Mass Index 29.56 (93.44 kg, 177.80 cm) MDM: 12:55 Patient medically screened. jr8 13:56 Data reviewed: vital signs, nurses notes, radiologic studies, plain films, and as a jr8 result, I will discharge patient. Data interpreted: Pulse oximetry: on room air is 100 %. Interpretation: normal. Counseling: I had a detailed discussion with the patient and/or guardian regarding: the historical points, exam findings, and any diagnostic results supporting the discharge/admit diagnosis, radiology results, the need for outpatient follow up, a hand specialist, to return to the emergency department if symptoms worsen or persist or if there are any questions or concerns that arise at home. 10/12 13:14 Order name: XRAY Wrist RIGHT 3 view; Complete Time: 13:56 jr8 Administered Medications: No medications were administered Disposition: 19:02 Co-signature as Attending Physician, Dwight Pelaez MD Signing chart for administrative ps1 purposes. Available for consultation in ED. . Disposition: 10/12/19 13:57 Discharged to Home. Impression: Pain in right wrist. - Condition is Stable. - Discharge Instructions: Arthritis, Wrist Pain. - Prescriptions for meloxicam 15 mg Oral tablet - take 1 tablet by ORAL route once daily As needed; 12 tablet. - Medication Reconciliation Form, Thank You Letter, Antibiotic Education, Prescription Opioid Use form. - Follow up: J Carlos Dillard MD; When: 1 week; Reason: If symptoms return, Recheck today's complaints, Continuance of care, Re-evaluation by your physician. - Problem is new. - Symptoms have improved. Signatures: Dispatcher [employer] EDMS Arnoldo Eckert PA PA jr8 Michelle Barker, RN RN Dwight Dumont MD MD ps1 Mo Roa RN RN tr5 Corrections: (The following items were deleted from the chart) 12:51 12:50 Home Meds: None; hb hb 14:32 13:57 10/12/2019 13:57 Discharged to Home. Impression: Pain in right wrist. Condition tr5 is Stable. Forms are Medication Reconciliation Form, Thank You Letter, Antibiotic Education, Prescription Opioid Use. Follow up: J Carlos Dillard; When: 1 week; Reason: If symptoms return, Recheck today's complaints, Continuance of care, Re-evaluation by your physician. Problem is new. Symptoms have improved. jr8
[2019-10-12 14:52] VITALS: BP 143/93; TEMP 97.8; O2SAT 100
== END 2019-10-12 14:32 | disposition home or self-care (01) ==
LOC: ER 12:42
DX: M25.531 Pain in right wrist (principal); F32.9 Major depressive disorder, single episode, unspecified; I10 Essential (primary) hypertension; F41.9 Anxiety disorder, unspecified
CPT/HCPCS: 99283

== ENCOUNTER 2019-10-27 11:04 | Emergency (ER) | payer OTHER ==
[2019-10-27] MEDS ORDERED: CLINDAMYCIN HCL 150 MG CAP ONE (11:44)
[2019-10-27] MEDS ORDERED: CLINDAMYCIN IV 150 MG/ML (4 mL) VIAL ONE (11:46)
--- NOTE | 2019-10-27 12:06 | ER ---
Nurse's Notes [facility] Name: Jah Alberto Age: 59 yrs Sex: Male : 1960 Arrival Date: 10/27/2019 Time: 11:07 Bed 14 Private MD: Diagnosis: Dental Pain Presentation: 10/27 11:15 Presenting complaint: Patient states: "I have a tooth falling out of my head, and I ss would like to get an antibiotic shot because I cannot get into a dentist and I cannot eat.". Transition of care: patient was not received from another setting of care. Onset of symptoms was October 25, 2019. Risk Assessment: Do you want to hurt yourself or someone else? Patient reports no desire to harm self or others. Initial Sepsis Screen: Does the patient meet any 2 criteria? No. Patient's initial sepsis screen is negative. Does the patient have a suspected source of infection? No. Patient's initial sepsis screen is negative. Care prior to arrival: None. 11:15 Method Of Arrival: Ambulatory ss 11:15 Acuity: АЛЕКСАНДР 5 ss Triage Assessment: 12:19 EENT: Reports. ca1 Historical: - Allergies: 11:15 Trazodone; ss - PMHx: 11:15 Anxiety; Depression; PTSD, disabled Vet, hernia pain requires to walk with a cane.; ss - PSHx: 11:15 Hernia repair; ss - Immunization history:: Adult Immunizations up to date. - Social history:: Smoking status: Patient uses tobacco products, cigars. - Ebola Screening: : Patient denies exposure to infectious person Patient denies travel to an Ebola-affected area in the 21 days before illness onset. Screenin:30 Abuse screen: Denies threats or abuse. Denies injuries from another. Nutritional ca1 screening: No deficits noted. Tuberculosis screening: No symptoms or risk factors identified. Fall Risk None identified. Assessment: 11:30 General: Appears in no apparent distress. comfortable, Behavior is calm, cooperative, ca1 appropriate for age. Pain: Complains of pain in upper right third molar, upper right second molar and upper right first molar Pain currently is 8 out of 10 on a pain scale. Neuro: Level of Consciousness is awake, alert, obeys commands, Oriented to person, place, time, situation, Appropriate for age. EENT: Oral mucosa is moist. Dental caries noted in upper right third molar (#1), upper right second molar (#2) and upper right first molar (#3). Derm: Skin is intact, is healthy with good turgor, Skin is pink, warm \\T\\ dry. Musculoskeletal: Circulation, motion, and sensation intact. Capillary refill < 3 seconds. Vital Signs: 11:15 BP 130 / 98; Pulse 89; Resp 16; Temp 98.0(TE); Pulse Ox 99% on R/A; Weight 91.17 kg; ss Height 5 ft. 10 in. (177.80 cm); Pain 8/10; 11:15 Body Mass Index 28.84 (91.17 kg, 177.80 cm) ED Course: 11:07 Patient arrived in ED. ag5 11:15 Arm band placed on right wrist. 11:16 Triage completed. 11:22 Kingsley Hendrickson PA is PHCP. [facility] 11:22 Hugh Gallego MD is Attending Physician. [facility] 11:23 Darcy Robbins RN is Primary Nurse. ca1 11:30 Patient has correct armband on for positive identification. Bed in low position. Call ca1 light in reach. Side rails up X 1. Pulse ox on. NIBP on. 11:30 No provider procedures requiring assistance completed. Patient did not have IV access ca1 during this emergency room visit. Administered Medications: 11:48 Drug: Clindamycin 600 mg Route: IM; Site: left gluteus; ca1 Outcome: 12:05 Discharge ordered by . [facility] 12:10 Discharged to home ambulatory. [facility] 12:10 Condition: stable 12:10 Discharge instructions given to patient, Instructed on discharge instructions, follow up and referral plans. medication usage, Demonstrated understanding of instructions, follow-up care, medications, Prescriptions given X 1. 12:19 Patient left the ED. [facility] Signatures: Kingsley Hendrickson PA PA jmm Smirch, Shelby, RN RN Darcy Robbins RN RN [facility] Yudy Cr ag5
--- NOTE | 2019-10-27 12:06 | EDPHYS ---
Physician Documentation [facility] Name: Jah Alberto Age: 59 yrs Sex: Male : 1960 Arrival Date: 10/27/2019 Time: 11:07 Bed 14 Private MD: ED Physician Hugh Gallego HPI: 10/27 11:32 This 59 yrs old Male presents to ER via Ambulatory with complaints of jmm Toothache. 11:32 The patient presents with loose tooth. Onset: The symptoms/episode began/occurred jmm gradually, 1 day(s) ago. Duration: The symptoms are continuous. Modifying factors: The symptoms are alleviated by nothing, the symptoms are aggravated by. Associated signs and symptoms: Pertinent negatives: fever, swelling. This is a 59 year old male with a history of anxiety, depression, PTSD, that presents to the ED with complaints of a loose tooth with mild dental pain. Patient denies fever, chills, drainage. . Historical: - Allergies: 11:15 Trazodone; ss - PMHx: 11:15 Anxiety; Depression; PTSD, disabled Vet, hernia pain requires to walk with a cane.; ss - PSHx: 11:15 Hernia repair; ss - Immunization history:: Adult Immunizations up to date. - Social history:: Smoking status: Patient uses tobacco products, cigars. - Ebola Screening: : Patient denies exposure to infectious person Patient denies travel to an Ebola-affected area in the 21 days before illness onset. ROS: 11:32 Constitutional: Negative for fever, chills, and weight loss. jmm 11:32 Cardiovascular: Negative for chest pain, palpitations, and edema, Respiratory: Negative for shortness of breath, cough, wheezing, and pleuritic chest pain, Neuro: Negative for headache, weakness, numbness, tingling, and seizure. 11:32 ENT: Positive for dental pain. 11:32 All other systems are negative. Exam: 11:32 Constitutional: This is a well developed, well nourished patient who is awake, alert, jmm and in no acute distress. Head/Face: atraumatic. Eyes: EOMI, no conjunctival erythema appreciated 11:32 Neck: Trachea midline, Supple Chest/axilla: Normal chest wall appearance and motion. Cardiovascular: Regular rate and rhythm. No edema appreciated Respiratory: Normal respirations, no respiratory distress appreciated Abdomen/GI: Non distended, soft Back: Normal ROM Skin: General appearance color normal MS/ Extremity: Moves all extremities, no obvious deformities appreciated, no edema noted to the lower extremities Neuro: Awake and alert, normal gait Psych: Behavior is normal, Mood is normal, Patient is cooperative and pleasant 11:32 ENT: Dental exam: pain, that is moderate, specifically in the upper right first molar (#3), loose, no swelling appreciated. Vital Signs: 11:15 BP 130 / 98; Pulse 89; Resp 16; Temp 98.0(TE); Pulse Ox 99% on R/A; Weight 91.17 kg; ss Height 5 ft. 10 in. (177.80 cm); Pain 8/10; 11:15 Body Mass Index 28.84 (91.17 kg, 177.80 cm) ss MDM: 11:32 Patient medically screened. [facility] 12:03 Data reviewed: vital signs, nurses notes. Counseling: I had a detailed discussion with lilian the patient and/or guardian regarding: the historical points, exam findings, and any diagnostic results supporting the discharge/admit diagnosis, the need for outpatient follow up, to return to the emergency department if symptoms worsen or persist or if there are any questions or concerns that arise at home. ED course: Patient is alert and non toxic in appearance in the ED. Patient advised to return to the ED if symptoms worsen. Patient understood and agrees with the plan of care. . Administered Medications: 11:48 Drug: Clindamycin 600 mg Route: IM; Site: left gluteus; ca1 Disposition: 12:56 Co-signature as Attending Physician, Hugh Gallego MD. rn Disposition: 10/27/19 12:05 Discharged to Home. Impression: Dental Pain. - Condition is Stable. - Discharge Instructions: Dental Pain. - Prescriptions for Clindamycin HCl 300 mg Oral Capsule - take 1 capsule by ORAL route every 6 hours for 10 days; 40 capsule. - Medication Reconciliation Form, Thank You Letter, Antibiotic Education, Prescription Opioid Use form. - Follow up: Private Physician; When: 2 - 3 days; Reason: Recheck today's complaints, Continuance of care, Re-evaluation by your physician. - Notes: Please eat soft foods until you can follow up with a dentist. Return to the ED if you develop fever, swelling, increased pain or any other concerning symptoms. Signatures: Kingsley Hendrickson PA PA jmm Nieto, Roman, MD MD rn Lanie Briceno RN RN ss Darcy Robbins RN RN ca1 Corrections: (The following items were deleted from the chart) 12:19 12:05 10/27/2019 12:05 Discharged to Home. Impression: Dental Pain. Condition is ca1 Stable. Forms are Medication Reconciliation Form, Thank You Letter, Antibiotic Education, Prescription Opioid Use. Follow up: Private Physician; When: 2 - 3 days; Reason: Recheck today's complaints, Continuance of care, Re-evaluation by your physician. lilian
[2019-10-27 15:26] VITALS: BP 130/98; TEMP 98; O2SAT 99
== END 2019-10-27 12:19 | disposition home or self-care (01) ==
LOC: ER 11:04
DX: K08.89 Other specified disorders of teeth and supporting structures (principal); F17.290 Nicotine dependence, other tobacco product, uncomplicated; F43.10 Post-traumatic stress disorder, unspecified; Z88.5 Allergy status to narcotic agent
CPT/HCPCS: 96372; 99283; S0077

== ENCOUNTER 2020-11-11 10:41 | Emergency (ER) | payer OTHER ==
[2020-11-11] MEDS ORDERED: HYDROCODONE/APAP 7.5/325 MG TAB ONE (12:53)
--- NOTE | 2020-11-11 12:55 | RAD REPORT ---
EXAM DESCRIPTION: CT - [id number] - 11/11/2020 12:34 pm CLINICAL HISTORY: Trauma, head and neck injury. PAIN COMPARISON: No comparisons TECHNIQUE: Axial 5 mm thick images of the head were obtained. Axial 2 mm thick images of the cervical spine were obtained with sagittal and coronal reconstruction images generated and reviewed. All CT scans are performed using dose optimization technique as appropriate and may include automated exposure control or mA/KV adjustment according to patient size. FINDINGS: CT HEAD WITHOUT CONTRAST: No acute hemorrhage, hydrocephalus or extra-axial collection is identified.No areas of brain edema or midline shift. Mild polypoid mucosal thickening of both maxillary antra. The paranasal sinuses and mastoids are othe rwise clear.The calvarium is intact. CT CERVICAL SPINE WITHOUT CONTRAST: No fracture or subluxation.Moderate spondylosis seen at C5-6 and C6-7.No prevertebral soft tissues sw elling is identified. IMPRESSION: No acute intracranial or cervical spine findings.
--- NOTE | 2020-11-11 13:07 | RAD REPORT ---
EXAM DESCRIPTION: RAD - Shoulder Right 2 View - 11/11/2020 12:41 pm CLINICAL HISTORY: PAIN COMPARISON: No comparisons FINDINGS: Mild AC joint degenerative changes are present with inferiorly projecting osteophyte. Suba cromial outlet narrowing is present, mild. No fracture or dislocation.
--- NOTE | 2020-11-11 13:11 | RAD REPORT ---
EXAM DESCRIPTION: RAD - Chest Single View - 11/11/2020 12:41 pm CLINICAL HISTORY: PAIN Chest pain. COMPARISON: Head C Spine Mpr Wo Con dated 11/11/2020 FINDINGS: Portable technique limits examination quality. The lungs are grossly clear. The heart is normal in size. Tortuous thoracic aorta noted. IMPRESSION: No acute intrathoracic process suspected.
--- NOTE | 2020-11-11 13:16 | ER ---
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 Since then he has R sided neck pain, R upper back pain and pain to his R shoulder. Coronavirus screen: Client denies travel out of the [place] in the last 14 days. Ebola Screen: Patient denies exposure to infectious person. Patient denies travel to an Ebola-affected area in the 21 days before illness onset. Initial Sepsis Screen: Does the patient meet any 2 criteria? No. Patient's initial sepsis screen is negative. Does the patient have a suspected source of infection? No. Patient's initial sepsis screen is negative. Risk Assessment: Do you want to hurt yourself or someone else? Patient reports no desire to harm self or others. Onset of symptoms was November 09, 2019. 11:02 Method Of Arrival: Ambulatory ss 11:02 Acuity: АЛЕКСАНДР 4 ss Historical: - Allergies: 11:05 GABAPENTIN; ss 11:05 PROPOFOL; ss 11:05 Trazodone; ss - PMHx: 11:05 Anxiety; Depression; Hernia; PTSD, disabled Vet, hernia pain requires to walk with a cane.; 11:05 Hypertension; ss - PSHx: 11:05 Hernia repair; ss - Immunization history:: Adult Immunizations up to date. - Social history:: Smoking status: Patient denies any tobacco usage or history of. Screenin:01 Abuse screen: Denies threats or abuse. Nutritional screening: No deficits noted. em Tuberculosis screening: No symptoms or risk factors identified. Fall Risk None identified. Assessment: 12:03 General: Appears in no apparent distress. uncomfortable, Behavior is calm, cooperative, em appropriate for age. Pain: Complains of pain in right trapezius Pain currently is 7 out of 10 on a pain scale. Neuro: Level of Consciousness is awake, alert, obeys commands, Oriented to person, place, time, situation, Appropriate for age. Cardiovascular: Capillary refill < 3 seconds Patient's skin is warm and dry. Respiratory: Airway is patent Respiratory effort is even, unlabored, Respiratory pattern is regular, symmetrical. GI: Patient currently denies nausea, vomiting. Derm: Skin is intact, is healthy with good turgor, Skin is pink, warm \T\ dry. Musculoskeletal: Range of motion: limited in right shoulder. 12:40 Reassessment: Patient appears in no apparent distress at this time. Patient and/or em family updated on plan of care and expected duration. Pain level reassessed. Patient is alert, oriented x 3, equal unlabored respirations, skin warm/dry/pink. Vital Signs: 11:02 BP 149 / 106; Pulse 87; Resp 16; Temp 99.0(TE); Pulse Ox 99% on R/A; Weight 86.64 kg; ss Height 5 ft. 11 in. (180.34 cm); Pain 7/10; 11:02 Body Mass Index 26.64 (86.64 kg, 180.34 cm) ED Course: 10:43 Patient arrived in ED. rg4 11:04 Triage completed. ss 11:05 Arm band placed on right wrist. ss 11:43 Park Gonzalez F[facility]-C is [facility]. kb 11:43 Americo Merino MD is Attending Physician. kb 12:01 Peewee Beard, RN is Primary Nurse. em 12:01 Patient has correct armband on for positive identification. Bed in low position. Call em light in reach. Side rails up X2. 12:34 CT Head C Spine In Process Unspecified. EDMS 12:42 Chest Single View XRAY In Process Unspecified. EDMS 12:42 Shoulder Right (2 View) XRAY In Process Unspecified. EDMS 13:30 No provider procedures requiring assistance completed. Patient did not have IV access em during this emergency room visit. Administered Medications: 12:40 Drug: Frederick (7.5 mg-325 mg) 1 tabs Route: PO; em 13:31 Follow up: Response: No adverse reaction; Marked relief of symptoms; Pain is decreased; em RASS: Alert and Calm (0) Outcome: 13:15 Discharge ordered by . kb 13:30 Discharged to home ambulatory. em 13:30 Condition: stable 13:30 Discharge instructions given to patient, Instructed on discharge instructions, follow up and referral plans. Demonstrated understanding of instructions, follow-up care, medications, Prescriptions given X 2. 13:32 Patient left the ED. em Signatures: Dispatcher [employer] Park Alves, BRAULIO-C PARARESCUE CRAFTSMAN-Peewee Roth, RN RN Lanie Murrieta RN RN ss Garcia, Rubi rg4
--- NOTE | 2020-11-11 13:16 | EDPHYS ---
Physician Documentation [facility] Name: Jah Alberto Age: 60 yrs Sex: Male : 1960 Arrival Date: 11/11/2020 Time: 10:43 Bed 16 Private MD: ED Physician Americo Merino HPI: 11/11 13:35 This 60 yrs old Male presents to ER via Ambulatory with complaints of Fall kb Injury. 13:35 Details of fall: The patient fell from an upright position, while walking. Associated kb injuries: The patient sustained injury to the head, pain, right shoulder, painful injury, right side of neck, painful injury. Severity of symptoms: At their worst the symptoms were moderate, in the emergency department the symptoms are unchanged. The patient has not experienced similar symptoms in the past. The patient has not recently seen a physician. 13:35 Onset: The symptoms/episode began/occurred 2 day(s) ago. Pt states he was mowing and kb the collection bag fell off while he was walking causing him to trip over it. Reports right neck and shoulder pain since then. Historical: - Allergies: 11:05 GABAPENTIN; ss 11:05 PROPOFOL; ss 11:05 Trazodone; ss - PMHx: 11:05 Anxiety; Depression; Hernia; PTSD, disabled Vet, hernia pain requires to walk with a ss cane.; 11:05 Hypertension; ss - PSHx: 11:05 Hernia repair; ss - Immunization history:: Adult Immunizations up to date. - Social history:: Smoking status: Patient denies any tobacco usage or history of. ROS: 13:33 Constitutional: Negative for fever, chills, and weight loss, Cardiovascular: Negative kb for chest pain, palpitations, and edema, Respiratory: Negative for shortness of breath, cough, wheezing, and pleuritic chest pain, Abdomen/GI: Negative for abdominal pain, nausea, vomiting, diarrhea, and constipation, Skin: Negative for injury, rash, and discoloration, Neuro: Negative for headache, weakness, numbness, tingling, and seizure. 13:33 Neck: Positive for pain with movement, pain at rest, tenderness, of the right side of neck. 13:33 MS/extremity: Positive for pain, of the right trapezius and right shoulder. Exam: 13:34 Constitutional: This is a well developed, well nourished patient who is awake, alert, kb and in no acute distress. Head/Face: Normocephalic, atraumatic. Chest/axilla: Normal chest wall appearance and motion. Nontender with no deformity. No lesions are appreciated. Cardiovascular: Regular rate and rhythm with a normal S1 and S2. No gallops, murmurs, or rubs. Normal PMI, no JVD. No pulse deficits. Respiratory: Lungs have equal breath sounds bilaterally, clear to auscultation and percussion. No rales, rhonchi or wheezes noted. No increased work of breathing, no retractions or nasal flaring. Abdomen/GI: Soft, non-tender, with normal bowel sounds. No distension or tympany. No guarding or rebound. No evidence of tenderness throughout. Skin: Warm, dry with normal turgor. Normal color with no rashes, no lesions, and no evidence of cellulitis. MS/ Extremity: Pulses equal, no cyanosis. Neurovascular intact. Full, normal range of motion. Neuro: Awake and alert, GCS 15, oriented to person, place, time, and situation. Cranial nerves II-XII grossly intact. Motor strength 5/5 in all extremities. Sensory grossly intact. Cerebellar exam normal. Normal gait. Vital Signs: 11:02 BP 149 / 106; Pulse 87; Resp 16; Temp 99.0(TE); Pulse Ox 99% on R/A; Weight 86.64 kg; ss Height 5 ft. 11 in. (180.34 cm); Pain 7/10; 11:02 Body Mass Index 26.64 (86.64 kg, 180.34 cm) MDM: 11:57 Patient medically screened. kb 13:14 Data reviewed: vital signs, nurses notes. Data interpreted: Pulse oximetry: on room air kb is 99 %. Interpretation: normal. Counseling: I had a detailed discussion with the patient and/or guardian regarding: the historical points, exam findings, and any diagnostic results supporting the discharge/admit diagnosis, radiology results, the need for outpatient follow up, a family practitioner, to return to the emergency department if symptoms worsen or persist or if there are any questions or concerns that arise at home. 11/11 11:48 Order name: Chest Single View XRAY; Complete Time: 13:12 kb 11/11 11:48 Order name: Shoulder Right (2 View) XRAY; Complete Time: 13:12 kb 11/11 12:08 Order name: CT Head C Spine; Complete Time: 12:57 kb Administered Medications: 12:40 Drug: [place] (7.5 mg-325 mg) 1 tabs Route: PO; em 13:31 Follow up: Response: No adverse reaction; Marked relief of symptoms; Pain is decreased; em RASS: Alert and Calm (0) Disposition: 11/12 08:35 Co-signature as Attending Physician, Americo Merino MD I agree with the assessment and anirudh plan of care. Disposition: 11/11/20 13:15 Discharged to Home. Impression: Fall on same level from slipping, tripping and stumbling, Pain in right shoulder. - Condition is Stable. - Discharge Instructions: Musculoskeletal Pain, Shoulder Pain, [id number]. - Prescriptions for Ibuprofen 800 mg Oral Tablet - take 1 tablet by ORAL route every 8 hours As needed take with food; 30 tablet. Cyclobenzaprine 10 mg Oral Tablet - take 1 tablet by ORAL route every 8 hours As needed; 21 tablet. - Medication Reconciliation Form, Thank You Letter, Antibiotic Education, Prescription Opioid Use form. - Follow up: Emergency Department; When: As needed; Reason: Worsening of condition. Follow up: Private Physician; When: 2 - 3 days; Reason: Recheck today's complaints, Continuance of care, Re-evaluation by your physician. Signatures: Dispatcher [employer] EDPark Frazier, SENIOR DRAFTER-C SENIOR DRAFTER-Americo Mclaughlin MD MD cha Munoz, Edgar RN KJ Lanie Briceno RN RN ss Corrections: (The following items were deleted from the chart) 11/11 13:32 13:15 11/11/2020 13:15 Discharged to Home. Impression: Fall on same level from em slipping, tripping and stumbling; Pain in right shoulder. Condition is Stable. Forms are Medication Reconciliation Form, Thank You Letter, Antibiotic Education, Prescription Opioid Use. Follow up: Emergency Department; When: As needed; Reason: Worsening of condition. Follow up: Private Physician; When: 2 - 3 days; Reason: Recheck today's complaints, Continuance of care, Re-evaluation by your physician. kb
[2020-11-11 13:36] VITALS: BP 149/106; TEMP 99; O2SAT 99
== END 2020-11-11 13:32 | disposition home or self-care (01) ==
LOC: ER 10:41
DX: M25.511 Pain in right shoulder (principal); W18.09XA Striking against other object with subsequent fall, initial encounter; Y93.H9 Activity, other involving exterior property and land maintenance, building and construction; Y92.9 Unspecified place or not applicable; I10 Essential (primary) hypertension; Z88.5 Allergy status to narcotic agent; Z88.8 Allergy status to other drugs, medicaments and biological substances
CPT/HCPCS: 70450; 71045; 72125; 99283

== ENCOUNTER 2021-02-11 11:47 | Emergency (ER) | payer MEDICARE ==
--- NOTE | 2021-02-11 14:52 | RAD REPORT ---
EXAM DESCRIPTION: RAD - Foot Left 3 View - 02/11/2021 2:29 pm CLINICAL HISTORY: PAIN COMPARISON: No comparisons FINDINGS: Oblique fracture involves the proximal phalanx of the fifth toe. Mild adjacent soft tissue swelling. Small plantar calcaneal spur.
--- NOTE | 2021-02-11 15:08 | EDPHYS ---
Physician Documentation [facility] Name: Jah Alberto Age: 61 yrs Sex: Male : 1960 Arrival Date: 02/11/2021 Time: 11:52 Bed 23 Private MD: ED Physician Hugh Gallego HPI: 02/11 15:14 This 61 yrs old Male presents to ER via Ambulatory with complaints of Foot kb Pain. 15:14 The patient presents with an injury, pain, swelling, tenderness. The complaints affect kb the left fifth toe and dorsum of left foot. Context: The problem was sustained at work, resulted from a heavy object falling, the patient can fully bear weight, the patient is able to ambulate. Onset: The symptoms/episode began/occurred 4 week(s) ago. Modifying factors: The symptoms are alleviated by nothing, the symptoms are aggravated by nothing. Associated signs and symptoms: The patient has no apparent associated signs or symptoms. Severity of symptoms: At their worst the symptoms were moderate, in the emergency department the symptoms are unchanged. The patient has not experienced similar symptoms in the past. The patient has not recently seen a physician. Pt states a very heavy object fell onto fifth toe and top of foot 4 days ago. States he rested, elevated and iced it for the first 3 days. Started bearing weight yesterday which caused pain and prompted him to come to the ER. Historical: - Allergies: 12:37 GABAPENTIN; ll1 12:37 PROPOFOL; ll1 12:37 Trazodone; ll1 - PMHx: 12:37 Anxiety; Depression; Hernia; Hypertension; PTSD, disabled Vet, hernia pain requires to ll1 walk with a cane.; - PSHx: 12:37 Hernia repair; ll1 - Immunization history:: Flu vaccine is up to date. - Social history:: Smoking status: Patient reports the use of cigarette tobacco products, cigars. ROS: 15:12 Constitutional: Negative for fever, chills, and weight loss, Skin: Negative for injury, kb rash, and discoloration, Neuro: Negative for headache, weakness, numbness, tingling, and seizure. 15:12 MS/extremity: Positive for pain, of the dorsum of left foot and left fifth toe. Exam: 15:12 Constitutional: This is a well developed, well nourished patient who is awake, alert, kb and in no acute distress. Head/Face: Normocephalic, atraumatic. Skin: Warm, dry with normal turgor. Normal color. Neuro: Awake and alert, GCS 15, oriented to person, place, time, and situation. Moves all extremities. Normal gait. 15:12 Musculoskeletal/extremity: Extremities: grossly normal except: noted in the left fifth toe and dorsum of left foot: pain, tenderness, ROM: intact in all extremities, Circulation is intact in all extremities. Sensation intact. Weight bearing: able to fully bear weight. Vital Signs: 12:34 BP 143 / 101; Pulse 85; Resp 17; Temp 98.3; Pulse Ox 99% ; Weight 87.09 kg; Height 5 ll1 ft. 11 in. (180.34 cm); Pain 2/10; 12:34 Body Mass Index 26.78 (87.09 kg, 180.34 cm) ll1 MDM: 14:02 Patient medically screened. kb 15:04 Data reviewed: vital signs, nurses notes. Data interpreted: Pulse oximetry: on room air kb is 99 %. Interpretation: normal. Counseling: I had a detailed discussion with the patient and/or guardian regarding: the historical points, exam findings, and any diagnostic results supporting the discharge/admit diagnosis, radiology results, the need for outpatient follow up, a orthopedic surgeon, to return to the emergency department if symptoms worsen or persist or if there are any questions or concerns that arise at home. 02/11 12:37 Order name: Foot Left 3 View XRAY; Complete Time: 15:00 kb 02/11 15:04 Order name: Orthopedic shoe kb Administered Medications: No medications were administered Disposition: 15:39 Co-signature as Attending Physician, Hugh Gallego MD. rn Disposition: 02/11/21 15:08 Discharged to Home. Impression: Displaced fracture of proximal phalanx of left lesser toe(s). - Condition is Stable. - Discharge Instructions: Toe Fracture, [id number]. - Medication Reconciliation Form, Thank You Letter, Antibiotic Education, Prescription Opioid Use, Work release form form. - Follow up: Emergency Department; When: As needed; Reason: Worsening of condition. Follow up: Private Physician; When: 2 - 3 days; Reason: Recheck today's complaints, Continuance of care, Re-evaluation by your physician. Signatures: Dispatcher [employer] EDPark Frazier, RESEARCH AND DEVELOPMENT SCIENTIST-C RESEARCH AND DEVELOPMENT SCIENTIST-Ckb Hugh Gallego MD MD rn Lurdes Arguello RN RN ll1 Corrections: (The following items were deleted from the chart) 15:13 15:12 Musculoskeletal/extremity: Extremities: grossly normal except: noted in the left kb fifth toe and dorsum of left foot: pain, tenderness, ROM: intact in all extremities, Circulation is intact in all extremities. Sensation intact. kb 15:37 15:08 02/11/2021 15:08 Discharged to Home. Impression: Displaced fracture of proximal kb phalanx of left lesser toe(s). Condition is Stable. Forms are Medication Reconciliation Form, Thank You Letter, Antibiotic Education, Prescription Opioid Use. Follow up: Emergency Department; When: As needed; Reason: Worsening of condition. Follow up: Private Physician; When: 2 - 3 days; Reason: Recheck today's complaints, Continuance of care, Re-evaluation by your physician. kb
--- NOTE | 2021-02-11 15:08 | ER ---
Nurse's Notes [facility] Name: Jah Alberto Age: 61 yrs Sex: Male : 1960 Arrival Date: 02/11/2021 Time: 11:52 Bed 23 Private MD: Diagnosis: Displaced fracture of proximal phalanx of left lesser toe(s) Presentation: 02/11 12:34 Chief complaint: Patient states: L foot pain. Dropped something heavy from work on it ll1 Thursday. Pain since. PMS intact. Coronavirus screen: Client denies travel out of the [place] in the last 14 days. At this time, the client does not indicate any symptoms associated with coronavirus-19. Ebola Screen: Patient denies travel to an Ebola-affected area in the 21 days before illness onset. Initial Sepsis Screen: Does the patient meet any 2 criteria? No. Patient's initial sepsis screen is negative. Does the patient have a suspected source of infection? Yes: Bone or joint infection. Risk Assessment: Do you want to hurt yourself or someone else? Patient reports no desire to harm self or others. Onset of symptoms was February 08, 2021. 12:34 Method Of Arrival: Ambulatory ll1 12:34 Acuity: АЛЕКСАНДР 4 ll1 Historical: - Allergies: 12:37 GABAPENTIN; ll1 12:37 PROPOFOL; ll1 12:37 Trazodone; ll1 - PMHx: 12:37 Anxiety; Depression; Hernia; Hypertension; PTSD, disabled Vet, hernia pain requires to ll1 walk with a cane.; - PSHx: 12:37 Hernia repair; ll1 - Immunization history:: Flu vaccine is up to date. - Social history:: Smoking status: Patient reports the use of cigarette tobacco products, cigars. Screenin:20 Abuse screen: Denies threats or abuse. Denies injuries from another. Nutritional ss screening: No deficits noted. Tuberculosis screening: Never had TB. Fall Risk None identified. Assessment: 14:20 General: Appears in no apparent distress. comfortable, Behavior is calm, cooperative, ss Denies fever, feeling ill, fatigue, chills. Pain: Complains of pain in dorsum of left foot Pain currently is 1 out of 10 on a pain scale. Pain began 2-3 days ago. Is continuous. Pain: Aggravated by increased activity, weight bearing. Neuro: Level of Consciousness is awake, alert, obeys commands, Oriented to person, place, time, situation. Cardiovascular: Capillary refill < 3 seconds is brisk in bilateral fingers Patient's skin is warm and dry. Respiratory: Airway is patent Respiratory effort is even, unlabored, Respiratory pattern is regular, symmetrical. GI: No signs and/or symptoms were reported involving the gastrointestinal system. EENT: Nares are clear. Derm: Skin is intact, is healthy with good turgor, Skin is dry, Skin is pink, warm \T\ dry. normal. Musculoskeletal: Circulation, motion, and sensation intact. Range of motion: intact in all extremities, Swelling absent. 15:00 Reassessment: Patient appears in no apparent distress at this time. Patient and/or ss family updated on plan of care and expected duration. Pain level reassessed. Patient is alert, oriented x 3, equal unlabored respirations, skin warm/dry/pink. xray results back. Awaiting disposition. Vital Signs: 12:34 BP 143 / 101; Pulse 85; Resp 17; Temp 98.3; Pulse Ox 99% ; Weight 87.09 kg; Height 5 ll1 ft. 11 in. (180.34 cm); Pain 2/10; 12:34 Body Mass Index 26.78 (87.09 kg, 180.34 cm) ll1 ED Course: 11:52 Patient arrived in ED. ds1 12:36 Triage completed. ll1 12:37 Arm band placed on. ll1 14:02 Park Gonzalez FNP-C is [facility]. kb 14:02 Hugh Gallego MD is Attending Physician. kb 14:19 Lanie Briceno, KJ is Primary Nurse. ss 14:20 Patient has correct armband on for positive identification. Bed in low position. Call ss light in reach. 14:29 Foot Left 3 View XRAY In Process Unspecified. EDMS 14:35 X-ray completed. Portable x-ray completed in exam room. mh1 15:30 No provider procedures requiring assistance completed. Patient did not have IV access ss during this emergency room visit. Administered Medications: No medications were administered Outcome: 15:08 Discharge ordered by . kb 15:37 Patient left the ED. kb 15:37 Discharged to home ambulatory. ss 15:37 Condition: good 15:37 Instructed on follow up and referral plans. Signatures: Dispatcher [employer] Park Alves, HATCHERY MANAGER-C HATCHERY MANAGER-Erin Ny 1 Carmen Churchill ds1 Lanie Briceno RN RN ss Lurdes Arguello RN RN ll1
== END 2021-02-11 15:37 | disposition home or self-care (01) ==
LOC: ER 11:47
DX: S92.512A Displaced fracture of proximal phalanx of left lesser toe(s), initial encounter for closed fracture (principal); F17.210 Nicotine dependence, cigarettes, uncomplicated; F17.290 Nicotine dependence, other tobacco product, uncomplicated; W20.8XXA Other cause of strike by thrown, projected or falling object, initial encounter; Y99.0 Civilian activity done for income or pay; F41.9 Anxiety disorder, unspecified; F32.9 Major depressive disorder, single episode, unspecified; I10 Essential (primary) hypertension; F43.10 Post-traumatic stress disorder, unspecified
CPT/HCPCS: 99283

== ENCOUNTER 2023-03-25 12:03 | Emergency (ER) | payer OTHER ==
--- OUTSIDE RECORDS SUMMARY | 2023-03-25 12:19 | XMS REPORT | Continuity of Care Document ---
:1960 Author Organization [facility] t Address [address] [place] [address] [place] [address] Care Team Providers Name Role Phone Arnol_Jericho Attending Clinician Unavailable Laila Ambrose Attending Clinician Arnol_Jericho Admitting Clinician Unavailable Payers Payer Name Policy Type Policy Number Effective Date Expiration Date S brandee [facility] [id number] 2021 (MEDICARE 00:00:00 REPLACEMENT HMO) Problems This patient has no known problems. Allergies, Adverse Reactions, Alerts This patient has no known allergies or adverse reactions. Medications This patient has no known medications. Procedures This patient has no known procedures. Encounters Start End Encounter Admission Attending Care Care Encounter Source Date/Time Date/Time Type Type Clinicians Facility Department ID 2022-05-24 2022-05-24 Outpatient [id number] [facility] 10:01:00 10:01:00 0716 [facility] 2022-04-10 2022-04-10 JIMMIE Ulloa [id number] [facility] [id number] [facility] 19:00:00 20:00:00 Arnol [id number] [facility] [id number] 2022-04-03 2022-04-03 Outpatient [facility]_A [id number] [facility] 01:38:00 01:38:00 0526 [facility] 2022-01-03 2022-01-03 Outpatient [facility] DMG [id number] [facility] 01:00:00 01:00:00 0225 [facility] 2021-11-14 2021-11-14 Outpatient DMG DMG [id number] [facility] 12:10:00 12:10:00 0106 [facility] 2021-11-13 2021-11-13 Outpatient [facility] [id number] [facility] 09:01:00 09:01:00 0105 Med[facility] l Group 2021-09-19 2021-09-19 Outpatient [facility] [id number] [facility] 08:01:00 08:01:00 [facility] This patient has no known results.
--- NOTE | 2023-03-25 12:55 | ER ---
Nurse's Notes [facility] Name: Jah Alberto Age: 63 yrs Sex: Male : 1960 Arrival Date: 03/25/2023 Time: 12:03 Bed 10 Private MD: Diagnosis: Cutaneous avulsion of the right thumb Presentation: 03/25 12:19 Chief complaint: Patient states: Right thumb laceration that happened yesterday evening nj1 while using a table saw. Went to [place] clinic today, injury cleaned and bandage and told to come to ED for further work up. Tetanus shot given at clinic today. Coronavirus screen: Vaccine status: Patient reports receiving the 2nd dose of the covid vaccine. Ebola Screen: Patient denies travel to an Ebola-affected area in the 21 days before illness onset. Initial Sepsis Screen: Does the patient meet any 2 criteria? No. Patient's initial sepsis screen is negative. Does the patient have a suspected source of infection? No. Patient's initial sepsis screen is negative. Risk Assessment: Do you want to hurt yourself or someone else? Patient reports no desire to harm self or others. Onset of symptoms was March 23, 2023. 12:19 Method Of Arrival: Ambulatory nj1 12:19 Acuity: АЛЕКСАНДР 3 nj1 Historical: - Allergies: 12:22 GABAPENTIN; nj1 12:22 PROPOFOL; nj1 12:22 Trazodone; nj1 - PMHx: 12:22 Anxiety; Depression; Hernia; Hypertension; PTSD, disabled Vet, hernia pain requires to nj1 walk with a cane.; - PSHx: 12:22 None; nj1 - Immunization history:: Client reports receiving the 2nd dose of the Covid vaccine. - Social history:: Smoking status: Patient denies any tobacco usage or history of. Screenin:36 [facility] ED Fall Risk Assessment (Adult) History of falling in the last 3 months, mb9 including since admission No falls in past 3 months (0 pts) Confusion or Disorientation No (0 pts) Intoxicated or Sedated No (0 pts) Impaired Gait No (0 pts) Mobility Assist Device Used No (0 pt) Altered Elimination No (0 pt) Score/Fall Risk Level 0 - 2 = Low Risk Oriented to surroundings, Maintained a safe environment, Educated pt \T\ family on fall prevention, incl call for assistance when getting out of bed. Abuse screen: Denies threats or abuse. Nutritional screening: No deficits noted. Tuberculosis screening: No symptoms or risk factors identified. Assessment: 12:36 General: Appears in no apparent distress. Pain: Denies pain. Neuro: Level of mb9 Consciousness is awake, alert, obeys commands, Oriented to person, place, time, situation, Appropriate for age. Cardiovascular: Patient's skin is warm and dry. Respiratory: Airway is patent Respiratory effort is even, unlabored, Respiratory pattern is regular, symmetrical. GI: No signs and/or symptoms were reported involving the gastrointestinal system. EENT: No signs and/or symptoms were reported regarding the EENT system. Derm: Wound noted right thumb Wound is no active bleeding noted. Musculoskeletal: Range of motion: intact in all extremities. Injury Description: Laceration sustained to right thumb is clean, jagged, superficial, 0.5 to 2.5 cm long, not bleeding, was sustained 12-24 hours ago. no active bleeding noted at this time. Vital Signs: 12:19 BP 135 / 93; Pulse 79; Resp 18; Temp 97.9(TE); Pulse Ox 100% ; Weight 84.82 kg; Height nj1 5 ft. 10 in. ; Pain 2/10; 13:24 BP 122 / 84; Pulse 74; Resp 16; Pulse Ox 99% on R/A; mb9 12:19 Body Mass Index 26.83 (84.82 kg, 177.8 cm) nj1 12:19 Pain Scale: Adult [facility] ED Course: 12:06 Patient arrived in ED. mr 12:16 Kingsley Hendrickson PA is PHCP. [facility] 12:16 Roderick Yee MD is Attending Physician. [facility] 12:22 Triage completed. nj1 12:23 Arm band placed on right wrist. nj1 12:24 Attending Physician role handed off by Roderick Yee MD anirudh 12:24 Americo Merino MD is Attending Physician. [facility] 12:28 Lulu Mcgregor RN is Primary Nurse. mb9 12:37 Placed in gown. Bed in low position. Call light in reach. Side rails up X 1. Client mb9 placed on continuous cardiac and pulse oximetry monitoring. NIBP monitoring applied. 12:37 No provider procedures requiring assistance completed. mb9 12:54 Woodrow Rendon MD is Referral Physician. lilian 13:24 Patient did not have IV access during this emergency room visit. mb9 Administered Medications: No medications were administered Medication: 12:37 VIS not applicable for this client. mb9 Outcome: 12:54 Discharge ordered by . lilian 13:24 Discharged to home ambulatory. ricarad 13:24 Condition: stable 13:24 Discharge instructions given to patient, Instructed on discharge instructions, follow up and referral plans. Demonstrated understanding of instructions, follow-up care, medications, Prescriptions given X 1. 13:24 Patient left the ED. mb9 Signatures: Americo Merino MD MD cha Mickail, Joel, PA PA jmm Rivera, Mary mr Mcgregor, Lulu Dumont RN RN mb9 Pilar Garrett RN RN nj1
--- NOTE | 2023-03-25 12:55 | EDPHYS ---
Physician Documentation [facility] Name: Jah Alberto Age: 63 yrs Sex: Male : 1960 Arrival Date: 03/25/2023 Time: 12:03 Bed 10 Private MD: ED Physician Americo Merino HPI: 03/25 12:29 This 63 yrs old Male presents to ER via Ambulatory with complaints of Thumb laceration. [facility] 12:29 The patient or guardian reports injury. Onset: The symptoms/episode began/occurred jm acutely, last night. Patient states that he injured his right thumb using a saw. Patient treated himself last night with tape and pressure. Denies fever, purulent drainage, numbness to the extremity.. Historical: - Allergies: 12:22 GABAPENTIN; nj1 12:22 PROPOFOL; nj1 12:22 Trazodone; nj1 - PMHx: 12:22 Anxiety; Depression; Hernia; Hypertension; PTSD, disabled Vet, hernia pain requires to nj1 walk with a cane.; - PSHx: 12:22 None; nj1 - Immunization history:: Client reports receiving the 2nd dose of the Covid vaccine. - Social history:: Smoking status: Patient denies any tobacco usage or history of. ROS: 12:29 Constitutional: Negative for fever, chills, and weight loss, Cardiovascular: Negative jm for chest pain, palpitations, and edema, Respiratory: Negative for shortness of breath, cough, wheezing, and pleuritic chest pain. 12:29 MS/extremity: Positive for injury or acute deformity. 12:29 All other systems are negative. Exam: 12:29 Constitutional: This is a well developed, well nourished patient who is awake, alert, jmm and in no acute distress. Head/Face: atraumatic. Eyes: EOMI, no conjunctival erythema appreciated ENT: Moist Mucus Membranes Neck: Trachea midline, Supple Chest/axilla: Normal chest wall appearance and motion. Cardiovascular: Regular rate and rhythm. No edema appreciated Respiratory: Normal respirations, no respiratory distress appreciated Abdomen/GI: Non distended Back: Normal ROM 12:29 Musculoskeletal/extremity: Full range of motion appreciated to the right thumb, IP joint has full strength against resistance, less than 2 seconds cap refill, compartments are soft, full radial pulse, neurovascular intact. 12:29 Skin: Avulsion noted to the right distal first phalanx. 12:29 Neuro: Orientation: is normal, Mentation: is normal, Memory: is normal. 12:29 Psych: Behavior/mood is pleasant, cooperative. Vital Signs: 12:19 BP 135 / 93; Pulse 79; Resp 18; Temp 97.9(TE); Pulse Ox 100% ; Weight 84.82 kg; Height nj1 5 ft. 10 in. ; Pain 2/10; 13:24 BP 122 / 84; Pulse 74; Resp 16; Pulse Ox 99% on R/A; mb9 12:19 Body Mass Index 26.83 (84.82 kg, 177.8 cm) nj1 12:19 Pain Scale: Adult nj1 MDM: 12:29 Patient medically screened. [facility] 14:58 Differential diagnosis: Avulsion. Data reviewed: vital signs, nurses notes. Counseling: lilian I had a detailed discussion with the patient and/or guardian regarding: the historical points, exam findings, and any diagnostic results supporting the discharge/admit diagnosis, the need for outpatient follow up, to return to the emergency department if symptoms worsen or persist or if there are any questions or concerns that arise at home. 03/25 12:53 Order name: Wound Care; Complete Time: 12:57 [facility] Administered Medications: No medications were administered Disposition: 03/26 09:52 Co-signature as Attending Physician, Roderick Yee MD I reviewed the patient's care rt provided by the Advanced Practice Provider and agree with the diagnosis and treatment plan. Disposition Summary: 03/25/23 12:54 Discharge Ordered Location: Home [facility] Condition: Stable [facility] Diagnosis - Cutaneous avulsion of the right thumb [facility] Followup: [facility] - With: Woodrow Rendon MD - When: 2 - 3 days - Reason: Recheck today's complaints, Continuance of care, Re-evaluation by your physician Discharge Instructions: - Discharge Summary Sheet [facility] - Nonsutured Laceration Care [facility] Forms: - Medication Reconciliation Form [facility] - Thank You Letter lilian - Antibiotic Education lilian - Prescription Opioid Use louisa Prescriptions: - Doxycycline Hyclate 100 mg Oral Tablet - take 1 tablet by ORAL route every 12 hours; 20 tablet; Refills: 0, Product [facility] Selection Permitted Signatures: Kingsley Hendrickson PA PA jmm Turkington, Ryan, MD MD rt Pilar Garrett, RN RN nj1
[2023-03-25 13:37] VITALS: TEMP 97.9
[2023-03-25 13:38] VITALS: BP 122/84; O2SAT 99
== END 2023-03-25 13:24 | disposition home or self-care (01) ==
LOC: ER 12:03
DX: S61.011A Laceration without foreign body of right thumb without damage to nail, initial encounter (principal); Z88.5 Allergy status to narcotic agent; Z88.8 Allergy status to other drugs, medicaments and biological substances

== ENCOUNTER 2024-08-12 11:50 | Emergency (ER) | payer OTHER ==
--- OUTSIDE RECORDS SUMMARY | 2024-08-12 11:53 | XMS REPORT | Continuity of Care Document ---
Author Name Unknown Address [address] [facility] [address] [place] [id number] [facility] thconnect Address [address] [facility] [address] [place] [address] Care Team Providers Care Rehabilitation Services Manager Name Role Phone Arnol_A Attending Clinician Unavailable Laila Ambrose Attending Clinician [phone] Arnol_Jericho Admitting Clinician Unavailable Payers Payer Name Policy Type Policy Number Effective Date Expirati on Date Source [facility] (MEDICARE REPLACEMENT HMO) [id number] 2021 00:00:00 Encounters Start Date/Time End Date/Time Encounter Type Admission Type Attending Clinicians Care Facility Care Department Encounter ID Source 2022-05-24 10:01:00 2022-05-24 10:01:00 Outpatient [facility] [id number] [facility] 2022-04-10 19:00:00 2022-04-10 20:00:00 JIMMIE Ambrose [id number] 2022-04-03 01:38:00 2022-04-03 01:38:00 Outpatient [facility] DMG [id number] [facility] 2022-01-03 01:00:00 2022-01-03 01:00:00 Outpatient DMG DMG [id number] [facility] 2021-11-14 12:10:00 2021-11-14 12:10:00 Outpatient DMG DMG [id number] [facility] 2021-11-13 09:01:00 2021-11-13 09:01:00 Outpatient [facility] [id number] [facility] 2021-09-19 08:01:00 2021-09-19 08:01:00 Outpatient [facility] [id number] [facility]
[2024-08-12] MEDS ORDERED: LIDOCAINE 4% PATCH ONE (12:30)
[2024-08-12] MEDS ORDERED: KETOROLAC 30 MG/ML INJ ONE (12:30)
[2024-08-12] MEDS ORDERED: DIAZEPAM 5 MG TABLET ONE (12:30)
[2024-08-12] MEDS ORDERED: methocarbamoL 500 MG TAB ONE (12:30)
--- NOTE | 2024-08-12 12:50 | RAD REPORT ---
EXAMINATION: CT CERVICAL SPINE WITHOUT CONTRAST HISTORY: neck pain COMPARISON: None TECHNIQUE: Multiple contiguous axial images were obtained in a CT of the cervical spine without IV co ntrast. Sagittal and coronal reformats were performed. One or more of the following dose reduction techniques were used: Automated exposure control, adjustment of the mA and kV according to patient si ze, and iterative reconstruction. Unless otherwise specified, incidental findings do not require dedicated imaging follow-up. FINDINGS: The vertebral bodies and intervertebral discs demonstrate normal height and alignment without fractu re or subluxation. Moderate disc thinning with posterior osteophyte formation lower cervical levels. No prevertebral soft tissue swelling is seen. The posterior facets are well aligned. Normal alignment of the skull base with the cervical spine is seen. The odontoid is normal and the lateral masses are symmetric. The lung apices are unremarkable. 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 IMPRESSION: No evidence of acute osseous abnormality of the cervical spine.
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
--- NOTE | 2024-08-12 13:26 | EDPHYS ---
Physician Documentation [facility] Name: Jah Alberto Age: 64 yrs Sex: Male : 1960 Arrival Date: 08/12/2024 Time: 11:50 Bed IW1 Private MD: ED Physician Ace Bowman HPI: 08/12 12:27 This 64 yrs old Male presents to ER via Ambulatory with complaints of Neck ec2 Pain, >24Hrs Old. 12:27 Patient arrives today for evaluation of neck pain. Patient reports that he injured ec2 himself several days ago. States he has been having pain since. Pain with movement. Patient reports no red flag symptoms.. Historical: - Allergies: 12:09 GABAPENTIN; cm10 12:09 PROPOFOL; cm10 12:09 Trazodone; cm10 12:09 Haloperidol; cm10 - Home Meds: 12:09 hydroxyzine HCl 50 mg oral tablet 1 tab every day at bedtime [Active]; atorvastatin 40 cm10 mg oral tablet 0.5 tab every day at bedtime [Active]; pantoprazole 40 mg oral tablet, delayed release (enteric coated) 1 tab every day at bedtime [Active]; losartan 50 mg oral tablet 1 tab daily [Active]; oxybutynin chloride 10 mg Oral Tablet, Extended Release 24 hr 1 tab daily [Active]; duloxetine 60 mg oral capsule,delayed release (e.c.) 1 cap three times a day [Active]; buspirone 15 mg Oral tablet [Active]; - PMHx: 12:09 Anxiety; Depression; Hernia; Hypertension; PTSD; Hypercholesterolemia; cm10 - Immunization history:: Adult Immunizations up to date. - Infectious Disease History:: Denies. - Social history:: Smoking status: Patient reports the use of cigarette tobacco products, cigars. ROS: 12:27 Constitutional: as per hpi ec2 Exam: 12:27 Constitutional: GEN: NAD Head: atraumatic Eyes: EOMI Ears: External ears are ec2 normal. CV: regular rate LUNGS: no respiratory distress ABD: non-distended SKIN: no evidence of rashes MSK: no evidence of trauma, paraspinal TTP in the neck without deformities or crepitus, no C/T/L-spine deformity Vital Signs: 12:12 BP 145 / 101; Pulse 85; Resp 16; Temp 98.2; Pulse Ox 99% on R/A; Weight 93.89 kg; cm10 Height 5 ft. 10 in. ; Pain 8/10; 12:12 Body Mass Index 29.70 (93.89 kg, 177.8 cm) cm10 12:12 Pain Scale: Adult cm10 MDM: 12:16 Patient medically screened. ec2 12:27 Data reviewed: vital signs. ED course: Patient arrives today for paraspinal neck pain. ec2 Examination remarkable for MSK findings as above. Will obtain CT of the C-spine. Suspect muscular strain, additionally evaluating for C-spine injury/fracture . 12:54 ED course: CT C-spine with no acute process. Suspect muscular strain. Will discharge ec2 home. Return precautions given.. 08/12 12:20 Order name: CT C Spine; Complete Time: 12:54 ec2 Administered Medications: 12:45 Drug: Methocarbamol PO 500 mg PO once Route: PO; ph 12:58 Follow up: Response: No adverse reaction ph 12:45 Drug: Lidoderm Topical Patch 5 % (700 mg/patch) 1 patches Topical once; leave on for 12 ph hours; cover most painful area; may cut into smaller pieces Route: Topical; Site: affected area; 12:58 Follow up: Response: No adverse reaction ph 12:45 Drug: Ketorolac IM 30 mg IM once Route: IM; Site: right deltoid; ph 12:58 Follow up: Response: No adverse reaction ph 12:45 Drug: Diazepam PO 10 mg PO once Route: PO; ph 12:58 Follow up: Response: No adverse reaction ph Disposition Summary: 08/12/24 13:25 Discharge Ordered Notes: Location: Home ec2 Condition: Stable ec2 Diagnosis - Sprain of joints and ligaments of other parts of neck ec2 Followup: ec2 - With: Private Physician - When: - Reason: Re-evaluation by your physician Discharge Instructions: - Discharge Summary Sheet ec2 - Neck Contusion, [id number] ec2 Forms: - Medication Reconciliation Form ec2 - Antibiotic Education ec2 - Prescription Opioid Use ec2 - Patient Portal Instructions ec2 - Leadership Thank You Letter ec2 Prescriptions: - Zanaflex 4 mg Oral Tablet - take 1 tablet ORAL route every 8 hours As needed; 20 tablet; Refills: 0, ec2 Product Selection Permitted Signatures: Dispatcher [facility] Medical CenterDelphine Gil RN RN [facility]ours FoundationMaranda RN RN cm10 Ace Bowman MD MD ec2
[2024-08-12 15:56] VITALS: BP 145/101; TEMP 98.2; O2SAT 99
== END 2024-08-12 13:46 | disposition home or self-care (01) ==
LOC: ER 11:50
DX: S13.8XXA Sprain of joints and ligaments of other parts of neck, initial encounter (principal); Z72.0 Tobacco use
CPT/HCPCS: 72125; 96372; 99284; J2001

== ENCOUNTER 2025-08-18 13:12 | Emergency (ER) | payer OTHER ==
--- OUTSIDE RECORDS SUMMARY | 2025-08-18 13:15 | XMS REPORT | Continuity of Care Document ---
Author Name Unknown Address [address] [place] [address]. [address] [place] [address] [facility] Address [address] [facility]. [address] [place] [address] Care Team Providers Care Fire Fighting Equipment Specialist Name Role Phone Arnol_A Attending Clinician Unavailable Laila Ambrose Attending Clinician Arnol_Jericho Admitting Clinician Unavailable Payers Payer Name Policy Type Policy Number Effective Date Expirati on Date Source [facility] (MEDICARE REPLACEMENT HMO) [id number] 2021 00:00:00 Encounters Start Date/Time End Date/Time Encounter Type Admission Type Attending Clinicians Care Facility Care Department Encounter ID Source 2022-04-10 19:00:00 2022-04-10 20:00:00 JIMMIE Ambrose [id number] [facility]
[2025-08-18 13:38] LABS: Absolute Lymphocytes (CBC) 1.3 K/uL (0.7-4.9); Hematocrit 31.4 % (39.6-49.0); Hemoglobin 9.8 g/dL (13.6-17.9); MCH 24.3 pg (27.0-35.0); MCHC 31.2 g/dL (32.0-36.0); MCV 78.0 fL (80-100); MPV 7.7 fL (7.6-11.3); Nucleated RBC Absolute Count 0.0 (0-0); Nucleated Red Blood Cells % 0.0 % (0-0); RBC Red Blood Cell Count 4.03 M/uL (4.33-5.43); White Blood Count 17.00 thou/uL (4.3-10.9)
[2025-08-18 13:40] LABS: D-Dimer 0.681 FEUug/mL (0-0.500); PT Prothrombin Time 12.0 SECONDS (10-13.0); Protime INR 1.06
[2025-08-18 13:56] LABS: ALT/SGPT 24.0 U/L (16-61); AST/SGOT 54.0 U/L (15-37); Albumin 3.3 g/dL (3.4-5.0); Albumin/Globulin Ratio 1.1 (1.1-1.8); Alkaline Phosphatase 79.0 U/L (45-117); Anion Gap 14.6 mEq/L (5.0-15.0); BUN Blood Urea Nitrogen 8.0 mg/dL (7-18); Bilirubin Indirect, Calculated 0.3 mg/dL (0.2-0.8); Globulin 3.0 g/dL (2.3-3.5); Glucose Level 110.0 mg/dL (74-106); Magnesium 2.3 mg/dL (1.6-2.4); NT PRO-BNP 735.0 pg/mL (<125); Potassium 3.6 mEq/L (3.5-5.1)
[2025-08-18 13:59] LABS: Troponin High Sensitivity 4185.1 pg/mL (<58.9)
--- NOTE | 2025-08-18 14:12 | RAD REPORT ---
EXAMINATION: ONE VIEW CHEST XR CLINICAL INDICATION: DYSPNEA TECHNIQUE: Frontal chest projection is submitted. Examination is limited by patient positioning and t echnique. COMPARISON: 11/11/2020 FINDINGS: Mild linear and patchy opacities in both lung bases, greater on the left, suspicious for infiltrate/d eveloping pneumonia. The heart is upper limit of normal in size. No displaced fractures identified.
--- NOTE | 2025-08-18 14:17 | RAD REPORT ---
EXAM: CT brain without contrast HISTORY: HEADACHE COMPARISON: None TECHNIQUE: Multiple contiguous axial images were obtained and a CT of the brain without contrast. Sag ittal and coronal reformats were performed. One or more of the following dose reduction techniques were used: Automated exposure control, adjust ment of the mA and/or kV according to patient size, and/or iterative reconstruction. FINDINGS: No evidence of hydrocephalus, intracranial hemorrhage, or extra-axial fluid collection. Mild brain atrophy with mild periventricular and deep white matter chronic microvascular ischemic ch anges present. No evidence of midline shift or areas of brain edema. The calvarium is intact. 24 mm polyp versus mucus retention cyst right maxillary antrum with thickene d murphy. IMPRESSION: No evidence of acute intracranial abnormality.
[2025-08-18 15:00] LABS: Sqamous Epithelial None Seen /HPF (None Seen); Urine Culture Reflex Order NOT NEEDED; Urine Microscopic Reflex YN ORDER UMIC; Urine WBC Clump Rare /HPF (None Seen)
--- NOTE | 2025-08-18 15:22 | RAD REPORT ---
EXAMINATION: CTA CHEST PE CLINICAL INDICATION: DYSPNEA TECHNIQUE: This examination was performed according to an angiographic protocol with 3D post-processi ng. This involves 3D reconstructions, MIPs, volume rendered images and/or shaded surface rendering. One or more of the following dose reduction techniques were used: Automated exposure control, adjustm ent of the mA and/or kV according to patient size, and/or iterative reconstruction. Unless otherwise specified, incidental findings do not require dedicated imaging follow-up. COMPARISON: No prior exam. FINDINGS: PULMONARY ARTERIES: Normal caliber. No evidence of pulmonary emboli to the subsegmental level. THORACIC AORTA: Normal caliber and configuration. Aberrant right subclavian artery, normal variant. LUNGS: Mild diffuse COPD. Mild linear atelectasis in both lung bases. No nodule, mass or infiltrate. PLEURA: No pleural effusion. No pneumothorax. MEDIASTINUM AND LYMPH NODES: No mediastinal mass or fluid collection. Normal size mediastinal, hilar, and axillary lymph nodes. OSSEOUS STRUCTURES AND CHEST WALL: Intact. UPPER ABDOMEN: Moderate hiatal hernia. IMPRESSION: No evidence of pulmonary emboli to the subsegmental level. Mild COPD.
[2025-08-18] MEDS ORDERED: CEFTRIAXONE 1000 MG/VIAL ONE (15:23)
[2025-08-18] MEDS ORDERED: AZITHROMYCIN 500 MG INJ IVPB ONE (15:23)
[2025-08-18] MEDS ORDERED: NA CHLORIDE 0.9% 50 ML ONE (15:24)
[2025-08-18] MEDS ORDERED: NA CHLORIDE 0.9% 250 ML ONE (15:24)
--- NOTE | 2025-08-18 16:03 | P.CNS ---
Date of Consult: 08/18/25 Reason for Consult: NSTEMI Requesting Physician: Americo Merino Chief Complaint: Seizure-like activity History of Present Illness: 64-year-old male with PMH COPD, HTN, HLD, anxiety, cannabis use, who presents after episode of seizure-like activity around 10 AM this morning. The patient reports getting frequent headaches while walking for the past 2 days. Patient's is at bedside, who reports that patient's arms went stiff, and his head moved backward and was noted to be sweating. The episode lasted about 15 minutes, following which the patient was confused. It appears that patient is now back at his baseline mentation. ECG largely unremarkable. Hemoglobin 8.8, WBC 17. Creatinine 1.16. NT proBNP 735. High-sensitivity troponin 4185. D- dimer 0.81. CT brain negative. CT chest is negative for PE. Sepsis workup underway. Patient denies any significant chest discomfort, however endorses mild chest sensation during episodes of headaches. Denies prior history of seizures or stroke. No shortness of breath. No prior cardiovascular history per patient. Allergies No Known Allergies Allergy (Unverified 04/16/18 11:06) Home medications list reviewed: Yes - Past Medical/Surgical History Diabetic: No - Social History Smoking Status: Current some day smoker Physical Examination BP 114 / 87; Pulse 105; Resp 19 S; Temp 98.5(O); Pulse Ox 99% on R/A; Pain 7/10 General: In no apparent distress, Oriented x3 HEENT: Atraumatic, Normocephalic, EOMI Neck: JVD not distended Respiratory: Clear to auscultation bilaterally Cardiovascular: No edema, Regular rate/rhythm, Normal S1 S2, No murmurs Capillary refill: <2 Seconds Gastrointestinal: Normal bowel sounds Musculoskeletal: No clubbing, No swelling Integumentary: No rashes Neurological: Normal speech Laboratory Data (last 24 hrs) 08/18/25 08/18/25 08/18/25 13:24 13:24 13:24 WBC 17.00 H Hgb 9.8 L Hct 31.4 L Plt Count 357 PT 12.0 INR 1.06 Sodium 131 L Potassium 3.6 BUN 8 Creatinine 1.16 Glucose 110 H Magnesium 2.3 Total Bilirubin 0.5 AST 54 H ALT 24 Alkaline Phosphatase 79 Imagings Data: ECG and imaging reviewed - Problems (1) NSTEMI (non-ST elevated myocardial infarction) Current Visit: Yes Status: Acute Plan: Given rising troponins, recommend transfer to tertiary care facility for PCI (no Shellfish Manager availability here until Thursday morning). Continue IV heparin infusion, ACS protocol. Continue aspirin and statin. Recommend neurology consultation. (2) Seizure-like activity Current Visit: Yes Status: Acute Plan: No prior history of seizures. CT brain negative. Recommend neurology consultation. (3) Hypertension Current Visit: Yes Status: Acute Plan: Currently normotensive. Continue to monitor clinically. Resume home medications when able. (4) COPD (chronic obstructive pulmonary disease) Current Visit: Yes Status: Acute Plan: Stable. Chronic. Not requiring supplemental O2 at this time. (5) Leukocytosis Current Visit: Yes Status: Acute Plan: Unclear etiology. Recommend repeating CBC. Infectious workup. (6) Anemia Current Visit: Yes Status: Acute Plan: Etiology unknown. Baseline hemoglobin unknown. Recommend further workup. Conclusions/Impression: Thank you for the consult. Please call with any questions.
--- NOTE | 2025-08-18 16:24 | ER ---
Nurse's Notes [facility] Name: Jah Alberto Age: 65 yrs Sex: Male : 1960 Arrival Date: 08/18/2025 Time: 13:12 Bed 8 Private MD: Diagnosis: Subsequent non-ST elevation (NSTEMI) myocardial infarction;Unspecified bacterial pneumonia Presentation: 08/18 13:15 Chief complaint: EMS states: Per EMS, patient's stated that patient experienced ar8 two episodes of seizure like activity where he tensed up and began to shake last night and this morning around 1100. patient c/o KEMP, BLE weakness and pain .No HX of seizures. 13:15 Coronavirus screen: At this time, the client does not indicate any symptoms associated ar8 with coronavirus-19. Ebola Screen: No symptoms or risks identified at this time. Initial Sepsis Screen: Does the patient meet any 2 criteria? HR > 90 bpm. No. Patient's initial sepsis screen is negative. Does the patient have a suspected source of infection? No. Patient's initial sepsis screen is negative. Risk Assessment: Do you want to hurt yourself or someone else? Patient reports no desire to harm self or others. Onset of symptoms was August 17, 2025. 13:15 Method Of Arrival: EMS: [facility] ar8 13:15 Acuity: АЛЕКСАНДР 3 ar8 Triage Assessment: 13:20 General: Appears in no apparent distress. Behavior is cooperative. Pain: Complains of ar8 pain in KEMP and BLE pain. Neuro: Level of Consciousness is awake, alert, obeys commands, Oriented to person, place. Cardiovascular: Rhythm is sinus tachycardia. Respiratory: Airway is patent Respiratory effort is even, unlabored, Respiratory pattern is regular, symmetrical. GI: No signs and/or symptoms were reported involving the gastrointestinal system. : No signs and/or symptoms were reported regarding the genitourinary system. Derm: No signs and/or symptoms reported regarding the dermatologic system. Musculoskeletal: Reports weakness in right leg and left leg pain in right leg and left leg. Historical: - Allergies: 13:36 GABAPENTIN; ar8 13:36 Haloperidol; ar8 13:36 PROPOFOL; ar8 13:36 Trazodone; ar8 - Home Meds: 13:36 atorvastatin 40 mg Oral tablet 0.5 tab every day at bedtime [Active]; buspirone 15 mg ar8 Oral tablet [Active]; duloxetine 60 mg Oral capsule 1 cap three times a day [Active]; hydroxyzine HCl 50 mg Oral tablet 1 tab every day at bedtime [Active]; losartan 50 mg Oral tablet 1 tab daily [Active]; oxybutynin chloride 10 mg Oral Tablet 1 tab daily [Active]; pantoprazole 40 mg Oral tablet 1 tab every day at bedtime [Active]; - PMHx: 13:36 PTSD; Anxiety; Depression; Hernia; Hypercholesterolemia; Hypertension; ar8 - Immunization history:: Adult Immunizations up to date. - Infectious Disease History:: Denies. - Social history:: Smoking status: Patient denies any tobacco usage or history of. Patient uses alcohol, occasionally. street drugs, marijuana. Screenin:20 [facility] ED Fall Risk Assessment (Adult) History of falling in the last 3 months, ar8 including since admission No falls in past 3 months (0 pts) Confusion or Disorientation Yes (5 pts) Intoxicated or Sedated No (0 pts) Impaired Gait No (0 pts) Mobility Assist Device Used No (0 pt) Altered Elimination No (0 pt) Score/Fall Risk Level 3 or more points = High Risk Oriented to surroundings, Maintained a safe environment. Abuse screen: Denies threats or abuse. Nutritional screening: No deficits noted. Tuberculosis screening: No symptoms or risk factors identified. Assessment: 13:40 Reassessment: See triage assessment. ar8 Vital Signs: 13:15 BP 114 / 87; Pulse 105; Resp 19 S; Temp 98.5(O); Pulse Ox 99% on R/A; Pain 7/10; ar8 13:30 BP 111 / 76; Pulse 105; Resp 20; Pulse Ox 97% on R/A; ar8 14:00 BP 123 / 90; Pulse 101; Resp 18; Pulse Ox 100% ; db 15:00 BP 128 / 90; Pulse 104; Resp 20; Pulse Ox 99% ; db 16:00 BP 120 / 85; Pulse 108; Resp 20; Pulse Ox 100% ; db 16:58 Weight 91.04 kg; ar8 17:00 BP 117 / 89; Pulse 97; Resp 23; Pulse Ox 100% ; db 17:30 BP 128 / 98; Pulse 104; Resp 20 S; Pulse Ox 100% on R/A; Pain 0/10; ar8 13:15 Pain Scale: Adult ar8 17:30 Pain Scale: Adult ar8 ED Course: 13:14 Patient arrived in ED. eb 13:14 [facility] Mur[facility] FNP [facility] 13:14 Americo Merino MD is Attending Physician. [facility] 13:17 EKG done, by ED staff, reviewed by Gill RAMSEY. ar8 13:20 Arm band placed on right wrist. ar8 13:20 Bed in low position. Call light in reach. Side rails up X2. Provided Education on: plan ar8 of care. Client placed on continuous cardiac and pulse oximetry monitoring. NIBP monitoring applied. 13:20 No provider procedures requiring assistance completed. Maintain EMS IV. Dressing ar8 intact. Good blood return noted. Site clean \T\ dry. Gauge \T\ site: 18G R AC. Flushed with 10 mL NS. 13:33 Patricio Roa RN is Primary Nurse. ar8 13:36 Triage completed. ar8 13:[address] via stretcher. ar8 13:47 CT Head Brain wo Cont In Process Unspecified. EDMS 13:49 XRAY Chest (1 view) In Process Unspecified. EDMS 14:38 Second set of blood cultures drawn. db 15:14 CT Chest For PE Angio In Process Unspecified. EDMS 16:33 initiated a transfer with Sierra from the [facility] Transfer Center. eb 16:57 connected the superintendent factory professional development instructor for [facility] with Gill Identification Clerk for eb patient transfer consultation. 17:11 connected the hospitalist professional development instructor for [facility] with Gill WINDOWS DEPLOYMENT TECHNICIAN for patient eb transfer consultation. 17:24 administrative approval given by Sierra Elmore, patient has been accepted to [facility] room A-512/ Dr. Marito Jones has accepted the patient in transfer/ report to be called to [phone]. 17:51 Inserted saline lock: 20 gauge in left forearm, using aseptic technique. Flushed with ar8 10 mL NS. 18:07 Report given to KJ Jauregui at [facility]. ar8 18:19 Patient transferred, IV remains in place. ar8 Administered Medications: 15:35 Drug: Rocephin IV 1 grams IV at calculated rate once; Given slow IV push per pharmacy ar8 instructions Route: IV; Rate: calculated rate; Site: right antecubital; 15:45 Follow up: Response: No adverse reaction; IV Status: Completed infusion; IV Intake: [id number] 15:45 Drug: AZITHromycin IVPB 500 mg IVPB once over 1 hrs; (mix in 250 mL NS) Route: IVPB; ar8 Infused Over: 1 hrs; Site: right antecubital; 16:45 Follow up: Response: No adverse reaction; IV Status: Completed infusion; IV Intake: ar8 250ml 17:07 Drug: Heparin (RI-Bolus No thrombolytic) - HEParin IVP 60 units/kg IVP once; Max 5000 ar8 units {Co-Signature: jl7 (Martin Franklin RN).} Route: IVP; Site: right antecubital; 17:57 Follow up: Response: No adverse reaction ar8 17:08 Drug: Heparin (RI Drip) 12 units/kg/hr - ([place] [address] units, D5W IV 500 ml) IV at ar8 calculated rate Per protocol; Max initial rate 1000 units/hr {Co-Signature: db (Jessenia Echeverria RN).} Route: IV; Rate: calculated rate; Site: right antecubital; 18:20 Follow up: Response: No adverse reaction; IV Status: Infusion continued upon transfer; ar8 IV Intake: 22.9ml 17:08 Drug: Clopidogrel PO 300 mg PO once Route: PO; ar8 17:51 Follow up: Response: No adverse reaction ar8 Medication: 13:30 VIS not applicable for this client. ar8 Intake: 15:45 IV: 50ml; Total: 50ml. ar8 16:45 IV: 250ml; Total: 300ml. ar8 18:20 IV: 23ml; Total: 323ml. ar8 Outcome: 16:23 ER care complete, transfer ordered by MD. martel 18:19 Transferred by ground EMS to [facility], ar8 18:19 Condition: stable 18:19 Discharge instructions given to patient, significant other, EMS, reason for transfer 18:22 Patient left the ED. ar8 Signatures: Dispatcher [employer] Danyelle Coles Jennifer, POCKET GRINDER OPERATOR POCKET GRINDER OPERATOR [email or web address] Jessenia Echeverria, RN RN db Patricio Roa RN RN ar8 Martin Franklin RN [email or web address] Jessenia Echeverria RN db Corrections: (The following items were deleted from the chart) 13:38 13:36 PMHx: PTSD; ar8 ar8
--- NOTE | 2025-08-18 16:24 | EDPHYS ---
Physician Documentation [facility] Name: Jah Alberto Age: 65 yrs Sex: Male : 1960 Arrival Date: 08/18/2025 Time: 13:12 Bed 8 Private MD: ED Physician Americo Merino HPI: 08/18 13:15 This 65 yrs old Male presents to ER via EMS with complaints of Probable Seizure. [facility] 13:15 65-year-old male with a past medical history of hypertension and HLD presents to the ER [facility] via EMS for 2 episodes of possible seizure-like activity. The patient's reports that last night the patient briefly " tensed up" and became unresponsive. She reports that it happened again this morning and that the patient is now complaining of a headache, mild chest pain, shortness of breath, and bilateral leg pain. EMS states that the patient was ANO x 2 upon arrival and heart rate was in the 130s. 1 L of NS was given on the way to the hospital which decrease the heart rate to 105. No other symptoms mentioned.. Historical: - Allergies: 13:36 GABAPENTIN; ar8 13:36 Haloperidol; ar8 13:36 PROPOFOL; ar8 13:36 Trazodone; ar8 - Home Meds: 13:36 atorvastatin 40 mg Oral tablet 0.5 tab every day at bedtime [Active]; buspirone 15 mg ar8 Oral tablet [Active]; duloxetine 60 mg Oral capsule 1 cap three times a day [Active]; hydroxyzine HCl 50 mg Oral tablet 1 tab every day at bedtime [Active]; losartan 50 mg Oral tablet 1 tab daily [Active]; oxybutynin chloride 10 mg Oral Tablet 1 tab daily [Active]; pantoprazole 40 mg Oral tablet 1 tab every day at bedtime [Active]; - PMHx: 13:36 PTSD; Anxiety; Depression; Hernia; Hypercholesterolemia; Hypertension; ar8 - Immunization history:: Adult Immunizations up to date. - Infectious Disease History:: Denies. - Social history:: Smoking status: Patient denies any tobacco usage or history of. Patient uses alcohol, occasionally. street drugs, marijuana. ROS: 13:15 Constitutional: Per HPI [facility] Exam: 13:15 Neuro: Orientation: to person, place \\T\\ time. Not oriented to time, Mentation: is jh7 normal, Motor: is normal, Sensation: is normal, seizure activity, is not displayed by the patient, 13:20 Constitutional: This is a well developed, well nourished patient who is awake, alert, jh7 and in no acute distress. Head/Face: Normocephalic, atraumatic. ENT: Nares patent. No nasal discharge, no septal abnormalities noted. Tympanic membranes are normal and external auditory canals are clear. Oropharynx with no redness, swelling, or masses, exudates, or evidence of obstruction, uvula midline. Mucous membranes moist. 13:20 Abdomen/GI: Soft, non-tender, with normal bowel sounds. No distension or tympany. No guarding or rebound. No evidence of tenderness throughout. Skin: Warm, dry with normal turgor. Normal color with no rashes, no lesions, and no evidence of cellulitis. MS/ Extremity: Pulses equal, no cyanosis. Neurovascular intact. Full, normal range of motion. 13:20 Respiratory: the patient does not display signs of respiratory distress, Respirations: normal, Breath sounds: decreased breath sounds, are located in both bases, Vital Signs: 13:15 BP 114 / 87; Pulse 105; Resp 19 S; Temp 98.5(O); Pulse Ox 99% on R/A; Pain 7/10; ar8 13:30 BP 111 / 76; Pulse 105; Resp 20; Pulse Ox 97% on R/A; ar8 14:00 BP 123 / 90; Pulse 101; Resp 18; Pulse Ox 100% ; db 15:00 BP 128 / 90; Pulse 104; Resp 20; Pulse Ox 99% ; db 16:00 BP 120 / 85; Pulse 108; Resp 20; Pulse Ox 100% ; db 16:58 Weight 91.04 kg; ar8 17:00 BP 117 / 89; Pulse 97; Resp 23; Pulse Ox 100% ; db 17:30 BP 128 / 98; Pulse 104; Resp 20 S; Pulse Ox 100% on R/A; Pain 0/10; ar8 13:15 Pain Scale: Adult ar8 17:30 Pain Scale: Adult ar8 MDM: 13:14 Medical Screening Exam initiated [facility] 17:16 Differential diagnosis: cerebral vascular accident, drug overdose, cardiac arrhythmia, [facility] seizure, TIA, [place], NSTEMI, sepsis. Data reviewed: vital signs, nurses notes, lab test result(s), EKG, radiologic studies, CT scan, plain films. Consideration of Admission/Observation Will transfer for required specialty. Management of patient was discussed with the following: Motor Assembler: Dr. Horn, alteration specialist at [facility] who advised repeating troponin. He stated that if the troponin increased that the patient would need to be transferred to a facility with Attending Pathologist available on the weekends. Due to the second troponin increasing, the patient was transferred to [facility]. Consulted with both Dr. Mcghee, alteration specialist at [facility], and Dr. Jones, hospitalist at [facility] who accepted the patient for transfer.. I considered the following discharge prescriptions or medication management in the emergency department Medications were administered in the Emergency Department. See MAR. Historians other than the Patient: EMS: EMS. Spouse/Significant Other: . Care significantly affected by the following chronic conditions: Hypertension. Counseling: I had a detailed discussion with the patient and/or guardian regarding the historical points, exam findings, and any diagnostic results supporting the discharge/admit diagnosis, the need to transfer to another facility, [facility] does not immediately have the required specialist, Attending Pathologist needed. Response to treatment: the patient's symptoms have mildly improved after treatment. 08/18 13:21 Order name: Basic Metabolic Panel; Complete Time: 14: [facility] 08/18 13:21 Order name: CBC with Diff; Complete Time: 14: [facility] 08/18 13:21 Order name: D-Dimer; Complete Time: 14:04 [facility] 08/18 13:21 Order name: LFT's; Complete Time: 14:04 [facility] 08/18 13:21 Order name: Magnesium; Complete Time: 14:04 [facility] 08/18 13:21 Order name: NT PRO-BNP; Complete Time: 14:04 [facility] 08/18 13:21 Order name: PT-INR; Complete Time: 14:04 [facility] 08/18 13:21 Order name: Troponin HS; Complete Time: 14:04 [facility] 08/18 13:21 Order name: UA Rfx Alf Cult if indicated; Complete Time: 15:33 [facility] 08/18 14:06 Order name: Lactate w/ 2H reflex if indic.; Complete Time: 15:33 [facility] 08/18 14:06 Order name: Blood Culture Adult (2) [facility] 08/18 15:26 Order name: Troponin High Sensitivity; Complete Time: 16:22 08/18 16:43 Order name: Ptt, Activated; Complete Time: 17:00 [facility] 08/18 13:21 Order name: XRAY Chest (1 view); Complete Time: 14:20 [facility] 08/18 13:21 Order name: CT Head Brain wo Cont; Complete Time: 14:20 [facility] 08/18 14:05 Order name: CT Chest For PE Angio; Complete Time: 15:33 [facility] 08/18 13:21 Order name: Cardiac monitoring; Complete Time: 13:42 [facility] 08/18 13:21 Order name: EKG - Nurse/Tech; Complete Time: 13:42 [facility] 08/18 13:21 Order name: IV Saline Lock; Complete Time: 13:42 [facility] 08/18 13:21 Order name: Labs collected and sent; Complete Time: 13:42 [facility] 08/18 13:21 Order name: O2 Per Protocol; Complete Time: 13:42 [facility] 08/18 13:21 Order name: O2 Sat Monitoring; Complete Time: 13:42 [facility] 08/18 13:21 Order name: Blood Glucose Level; Complete Time: 14:01 [facility] EC:20 Rate is 104 beats/min. Rhythm is regular. QRS [place] is Normal. [place] interval is normal. [facility] QRS interval is normal. QT interval is normal. No Q waves. T waves are Normal. No ST changes noted. Clinical impression: Sinus tachycardia. Administered Medications: 15:35 Drug: Rocephin IV 1 grams IV at calculated rate once; Given slow IV push per pharmacy ar8 instructions Route: IV; Rate: calculated rate; Site: right antecubital; 15:45 Follow up: Response: No adverse reaction; IV Status: Completed infusion; IV Intake: [id number] 15:45 Drug: AZITHromycin IVPB 500 mg IVPB once over 1 hrs; (mix in 250 mL NS) Route: IVPB; ar8 Infused Over: 1 hrs; Site: right antecubital; 16:45 Follow up: Response: No adverse reaction; IV Status: Completed infusion; IV Intake: ar8 250ml 17:07 Drug: Heparin ([place]-Bolus No thrombolytic) - HEParin IVP 60 units/kg IVP once; Max 5000 ar8 units {Co-Signature: jl7 (Martin Franklin RN).} Route: IVP; Site: right antecubital; 17:57 Follow up: Response: No adverse reaction ar8 17:08 Drug: Heparin ([place] Drip) 12 units/kg/[place] - ([place] [address] units, D5W IV 500 ml) IV at ar8 calculated rate Per protocol; Max initial rate 1000 units/hr {Co-Signature: db (Jessenia Echeverria RN).} Route: IV; Rate: calculated rate; Site: right antecubital; 18:20 Follow up: Response: No adverse reaction; IV Status: Infusion continued upon transfer; ar8 IV Intake: 22.9ml 17:08 Drug: Clopidogrel PO 300 mg PO once Route: PO; ar8 17:51 Follow up: Response: No adverse reaction ar8 Disposition Summary: 08/18/25 16:23 Transfer Ordered Notes: Transfer Location: [place] [id number] Reason: Higher level of care [facility] Condition: Stable [facility] Problem: new [facility] Symptoms: are unchanged [facility] Accepting Physician: Awais FIERRO(08/18/25 18:22) ar8 Diagnosis - Subsequent non-ST elevation (NSTEMI) myocardial infarction [facility] - Unspecified bacterial pneumonia [facility] Forms: - Medication Reconciliation Form [facility] - SBAR form [facility] Addendum: 08/23/2025 06:57 Co-signature as Attending Physician, Americo Merino MD I agree with the assessment and c meraz plan of care. Signatures: Dispatcher [employer] EDAmerico Harrell MD MD cha Hadash, Jennifer, METEOROLOGY PROFESSOR METEOROLOGY PROFESSOR 7 Patricio Roa, RN RN ar8 Martin Franklin RN jl7 Jessenia Ehceverria RN Corrections: (The following items were deleted from the chart) 08/18 13:22 13:22 BASIC METABOLIC PANEL+C.LAB.BRZ ordered. EDMS EDMS 13:22 13:22 CBC+H.LAB.BRZ ordered. EDMS EDMS 13:22 13:22 D-DIMER+COAG.LAB.BRZ ordered. EDMS EDMS 13:22 13:22 HEPATIC FUNCTION+C.LAB.BRZ ordered. EDMS EDMS 13:22 13:22 MAGNESIUM+C.LAB.BRZ ordered. EDMS EDMS 13:22 13:22 PROBNP+C.LAB.BRZ ordered. EDMS EDMS 13:22 13:22 PROTIME (+INR)+COAG.LAB.BRZ ordered. EDMS EDMS 13: 13:22 Troponin High Sensitivity+C.LAB.BRZ ordered. EDMS EDMS 13:22 13:22 Chest Single View+RAD.RAD.BRZ ordered. EDMS EDMS 13:22 13:22 Head Brain Wo Cont+CT.RAD.BRZ ordered. EDMS EDMS 13:22 13:22 UA Rfx Alf Cult if indicated+U.LAB.BRZ ordered. EDMS EDMS 13:38 13:36 PMHx: PTSD; ar8 ar8 14:06 14:06 LACTATE+C.LAB.BRZ ordered. EDMS EDMS 14:06 14:06 BLOOD CULTURE*+BA.LAB.BRZ ordered. EDMS EDMS 16:38 13:15 65-year-old male with a past medical history of hypertension and HLD presents to [facility] the ER via EMS for 2 episodes of possible seizure-like activity. The patient's reports that last night the patient briefly " tensed up" and became unresponsive. She reports that it happened again this morning and that the patient is now complaining of a headache, mild chest pain, shortness of breath, and bilateral leg pain. No other symptoms mentioned.. [facility] 18:22 16:23 Accepting Isabel ar8
[2025-08-18] MEDS ORDERED: HEPARIN/D5W 25,000 UNIT/500 ML BAG IV ONE (16:48)
[2025-08-18] MEDS ORDERED: CLOPIDOGREL 75 MG TABLET ONE (16:48)
[2025-08-18] MEDS ORDERED: HEPARIN 5000 UNIT/ML 1 ML VIAL ONE (16:48)
[2025-08-18 18:27] VITALS: TEMP 98.5
[2025-08-18 18:33] VITALS: O2SAT 100
[2025-08-18 18:36] VITALS: BP 128/98
== END 2025-08-18 18:22 | disposition short-term general hospital (02) ==
LOC: ER 13:12
DX: I22.2 Subsequent non-ST elevation (NSTEMI) myocardial infarction (principal); I21.9 Acute myocardial infarction, unspecified; J15.9 Unspecified bacterial pneumonia; I10 Essential (primary) hypertension; F41.9 Anxiety disorder, unspecified
CPT/HCPCS: 96365; 96367; 93005; 87040 ×2; 85025; 81001; 80048; 36415; 83735; 85610; 85379; 80076; 83605; 85730; 84484 ×2; 83880; 70450; 71275; 71045; 96375; 99285; Q9967; J1644; J0456; J7050; J0696